=== PATIENT | male | born 1945 | race Caucasian/White ===

== ENCOUNTER 2021-04-06 14:25 | Outpatient (CLI) | payer OTHER, SELFPAY ==
--- NOTE | 2021-04-06 18:14 | ONC CON_ITS ---
Dr. Siegel New Patient Note Patient: Agapito Solorio Unit #: [id number]: [id number] Dicatated By: Danial Siegel M.D.Date of Visit: Apr 06, 2021 Onc MED New Patient/Consult Referring Physician: Dr. BRADY HERNANDEZ M.D. History of Present Illness: Mr. Agapito Solorio, is a 75-year-old gentleman with a history of recurrent fever since last year, initially he was diagnosed with Erlichinosis and treated for that and then again, as per medical record went to emergency room with high-grade fever at that time he was advised inpatient care but patient left hospital AGAINST MEDICAL ADVICE, patient returned again to the hospital where he was diagnosed with tularemia and was treated with 10 days course of doxycycline and then in February 2021 patient was evaluated by PMD at [facility] and patient told them he was not feeling any better has continued to have night sweats, intermittent fever go up to 101, he was also complaining of generalized weakness and fatigue and vague, nonspecific intermittent abdominal pain, his sed rate was 45, negative for RA screen and his hemoglobin went down to 10.1 g compared to 13 g previously, diagnosed with microcytic anemia with low iron level at 15, patient was started on oral iron and also noted his PSA was 10.2 compared to 4.4 earlier and impression was that could be due to prostatitis, patient was referred to infectious disease for FUO and he was given finasteride for BPH symptom as per patient he was given Levaquin and Flagyl which he has recently completed the course and still running off-and-on fever because of fever and abdominal pain patient underwent CT scan of abdomen pelvis on March 10, 2021 which showed large irregular mass migraine 16.6 x 11.5 x 12.5 cm in the left side of abdomen with central necrosis associated abscess cannot be ruled out. Exact origin of the mass is uncertain colon, small bowel, gastric mass as well as pancreatic mass should be considered. At least 2 small low-attenuation lesion in the liver, benign versus mets. 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 Desmin was negative. Patient denies smoking or alcohol use Patient is complaining of generalized weakness and fatigue but denies any melena or hematochezia, denies any hemoptysis or hematemesis, denies any jaundice, denies any abdominal distention but weight loss, attributing to recurrent fever and generalized weakness and fatigue as denies early fullness dysuria or hematuria. Past Medical History: Mr. Eduardo medical history consists of anxiety, B Complex deficiency, benign prostatic hyperplasia, hyperlipidemia, hypertension, microcytic anemia, osteoarthritis, and ventral hernia. Past Surgical History: Mr. Eduardo surgical/procedural history consists of colonoscopy and foot mass excision. Medications: clonazePAM (0.25 mg) Tablet Oral t.i.d. PRN, Ferrous Sulfate (325 (65 fe) mg) Tablet Oral daily, Finasteride (5 mg) Tablet Oral daily, metroNIDAZOLE (500 mg) Tablet Oral t.i.d. Allergies: No Known Allergies. Social History: Mr. Solorio is . Mr. Solorio has never smoked. He is an active drinker. Drinks beer/wine 2 x week. Family History: Mr. Solorio's mother at age 80. Mr. Solorio's father at age 80. Mr. Solorio has 2 brothers: 2 . He has 2 sisters: 2 alive. Review Of Symptoms: Review of Systems is not available for this patient. Vital Signs: Performed on Apr 06, 2021 15:56: 7, 2, 26.45, 2.11 sq.m, 72 in, 97 %, 75 /min, 18 /min, 114/74 mm(hg), 99.3 F (HIGH), and 195 lbs (HIGH). Performance Status: 0 - Fully active, able to carry on all predisease activities without restrictions. (ECOG) Physical Examination: ENMT - No mouth sores, no thrush, no jaundice no cervical lymphadenopathy, Respiratory - Lungs are clear to auscultation, Cardiovascular - Regular rate and rhythm of heart, Abdomen - Soft, bowel sounds present, Nontender no rebound tenderness, fullness in left abdomen, Extremities - No visible edema. Lab/Imaging: Most recent lab results are not available for this patient. Impression: Gastrointestinal stromal tumor, spindle cell type per CT-guided biopsy of left abdominal mass done on March 15, 2021, final pathology report neoplasm stained for c-kit, DOG1, SMA, S100. Desmin was negative CT scan of abdomen done on March 10, 2021 showed large irregular mass in the left side of abdomen Approximately 16.6 x 11.5 x 12.5 cm with air and appearance to be necrosis centrally which cannot be from the colon, splenic flexure, small bowel, pancreas or stomach. Associated abscess cannot be ruled out. Exact origin of the mass is uncertain. Mass appears to be causing pressure on the left renal artery, colon and splenic flexure, small bowel and stomach. No lymphadenopathy in the abdomen or pelvis. Small low-attenuation lesion involving the lateral right lobe of the liver and a second small low-attenuation lesion in the anterior left lobe of liver Iron deficiency anemia, on oral iron supplement Recurrent fever, in the past diagnosed and treated for erlichinosis, later on for tularemia, dysuria with ciprofloxacin earlier then Levaquin and Flagyl Plan: Discussed with patient regarding his disease status and treatment option, pathology report was reviewed which is somewhat incomplete, no mitotic index mentioned no molecular profiling e.g. c-kit mutation which is common in 70 to 80% or platelet-derived growth factor receptor alpha mutation usually reported in 10% of GIST., And on CT scan of abdomen it was not clear whether tumor is arising from stomach which is the most common site e.g. 50 to 60% cases or small bowel which is about 30 to 35% cases and there is also concerned about tumor necrosis or abscess or fistula, no obvious sign of tumor rupture. And patient also recently diagnosed with iron deficiency anemia etiology remained unclear, there was mention about EGD and colonoscopy in the medical record but has not been done yet. Patient is on oral iron supplement, tolerating reasonably well. 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 If c-kit mutation is confirmed and patient is not a candidate for upfront surgery, will consider Gleevec 400 mg p.o. daily As there is a concern regarding possible abscess or tumor necrosis or fistula and concern regarding impending tumor rupture, and no information regarding mitotic index, we will refer patient to GI surgical oncology at [place] for evaluation Signed By: Danial Siegel M.D. <<Signature on File>>
== END 2021-04-06 14:26 | disposition home or self-care (01) ==
LOC: ONCMED 14:31
PROVIDERS: PCP Emergency Medicine Emergency Medical Services; Visit Provider Internal Medicine Hematology & Oncology
DX: D48.1 Neoplasm of uncertain behavior of connective and other soft tissue (principal); K76.9 Liver disease, unspecified; D50.9 Iron deficiency anemia, unspecified; Z79.899 Other long term (current) drug therapy
CPT/HCPCS: 99204

== ENCOUNTER 2021-05-13 08:23 | Outpatient (CLI) | payer OTHER, SELFPAY ==
[2021-05-13 10:00] LABS: Basophils # 0.1 10^3/uL (0.0-0.1); Basophils % 0.4 %; Eosinophils # 0.1 10^3/uL (0.0-0.8); Eosinophils % 0.9 %; Hematocrit 35.4 % (42.0-52.0); Hemoglobin 10.8 g/dL (11.7-16.6); Lymphocytes # 3.2 10^3/uL (0.8-4.8); Lymphocytes % 20.6 %; Mean Corpuscular HGB Conc 30.5 g/dL (30.0-36.0); Mean Corpuscular Hemoglobin 23.2 pg (28.0-34.0); Mean Corpuscular Volume 76.1 fl (80-94); Mean Platelet Volume 8.5 fL (7.4-10.4); Monocytes # 1.4 10^3/uL (0.2-0.9); Monocytes % 8.7 %; Neutrophils # 10.82 10^3/uL (1.8-7.7); Nucleated Red Blood Cells % 0 %; Platelet Count 366 10^3/cmm (130-400); Red Blood Count 4.65 10^6/uL (4.1-5.3); Red Cell Distribution Width 19.7 % (12.1-15.1); White Blood Count 15.7 10^3/uL (4.0-10.0)
[2021-05-13 10:25] LABS: Alanine Aminotransferase 8 U/L (0-41); Alkaline Phosphatase 71 IU/L (40-130); Anion Gap 12.2 (5-19); Aspartate Amino Transferase 10 U/L (0-40); Blood Urea Nitrogen 7 mg/dL (8-23); Calcium 8.1 mg/dL (8.5-10.5); Carbon Dioxide 26 mmol/L (22-29); Chloride 102 mmol/L (98-107); Glucose 99 mg/dL (65-115); Osmolality Calculated 280 mOsm/kg (285-295); Potassium 4.2 mmol/L (3.5-5.1); Sodium 136 mmol/L (136-145); Total Bilirubin 0.4 mg/dL (0.15-1.2)
--- NOTE | 2021-05-15 18:12 | ONC FU_ITS ---
Dr. Siegel follow up note Patient: Agapito Solorio Unit #: [id number]: [id number] Dicatated By: Danial Siegel M.D.Date of Visit:May 13, 2021 Onc Med Follow-up/Prog Note History of Present Illness: Mr. Agapito Solorio, is a 75-year-old gentleman with a history of recurrent fever since last year, initially he was diagnosed with Erlichinosis and treated for that and then again, as per medical record went to emergency room with high-grade fever at that time he was advised inpatient care but patient left hospital AGAINST MEDICAL ADVICE, patient returned again to the hospital where he was diagnosed with tularemia and was treated with 10 days course of doxycycline and then in February 2021 patient was evaluated by PMD at [facility] and patient told them he was not feeling any better has continued to have night sweats, intermittent fever go up to 101, he was also complaining of generalized weakness and fatigue and vague, nonspecific intermittent abdominal pain, his sed rate was 45, negative for RA screen and his hemoglobin went down to 10.1 g compared to 13 g previously, diagnosed with microcytic anemia with low iron level at 15, patient was started on oral iron and also noted his PSA was 10.2 compared to 4.4 earlier and impression was that could be due to prostatitis, patient was referred to infectious disease for FUO and he was given finasteride for BPH symptom as per patient he was given Levaquin and Flagyl which he has recently completed the course and still running off-and-on fever because of fever and abdominal pain patient underwent CT scan of abdomen pelvis on March 10, 2021 which showed large irregular mass migraine 16.6 x 11.5 x 12.5 cm in the left side of abdomen with central necrosis associated abscess cannot be ruled out. Exact origin of the mass is uncertain colon, small bowel, gastric mass as well as pancreatic mass should be considered. At least 2 small low-attenuation lesion in the liver, benign versus mets. 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 Desmin was negative. Molecular profiling positive for KIT mutation , but negative for BRAF mutation and PDGFRA mutation Patient denies smoking or alcohol use Patient is complaining of generalized weakness and fatigue but denies any melena or hematochezia, denies any hemoptysis or hematemesis, denies any jaundice, denies any abdominal distention but weight loss, attributing to recurrent fever and generalized weakness and fatigue as denies early fullness dysuria or hematuria., Patient was referred to oncology clinic at [facility] where he underwent CT scan of chest abdomen pelvis on April 14, 2021 and discussed about exploratory laparotomy with resection of GIST tumor and subsequently went to see , med onc for follow-up on April 28, [address] scan of chest abdomen pelvis, Dr. Spivey's concern was metastatic disease to the liver ,so Gleevec 400 mg p.o. daily was recommended and follow-up scan in 2 months was recommended and if there is a response surgical resection in the setting of oligometastatic disease is under consideration, patient was advised to continue the Levaquin for possible deep-seated infection in the primary tumor, as per patient he took it for some time then he stopped taking it on his own and he is not spiking any more fever came For follow-up, denies any specific complaints, no fever chills, no nausea or vomiting, no diarrhea or constipation, no abdominal pain, no skin rash or mouth sores, no jaundice, patient has chronic bilateral shoulder pain due to arthritis, in the past shoulder replacement was discussed but now due to newly diagnosed GIST tumor, now being treated with only supportive care as far as extensive arthritis is concerned. Patient is tolerating Gleevec very well which he started about 2 weeks ago on April 28, 2021 Medications: clonazePAM (0.25 mg) Tablet Oral t.i.d. PRN, Ferrous Sulfate (325 (65 fe) mg) Tablet Oral daily, Finasteride (5 mg) Tablet Oral daily Allergies: No Known Allergies. Review of Systems: Review of Systems is not available for this patient. Vital Signs: Performed on May 13, 2021 08:43 Height - 72.00 in Weight - 193.8 lbs (LOW) BSA - 2.10 sq.m BMI - 26.28 Temperature - 98.2 F (LOW) Pulse - 84 /min Respiration - 18 /min BP - 117/76 mm(hg) O2 Sat - 96 % Pain - 6 Fatigue - 7 Performance Status: 0 - Fully active, able to carry on all predisease activities without restrictions. (ECOG) Physical Examination: ENMT - No mouth sores, no thrush, no jaundice, Respiratory - Lungs are clear to auscultation, Cardiovascular - Regular rate and rhythm of heart, Abdomen - Soft, bowel sounds present, Extremities - No visible edema. Lab/Imaging: Most recent lab results are not available for this patient. Impression: Gastrointestinal stromal tumor, spindle cell type per CT-guided biopsy of left abdominal mass done on March 15, 2021, final pathology report neoplasm stained for c-kit, DOG1, SMA, S100. Desmin was negative CT scan of abdomen done on March 10, 2021 showed large irregular mass in the left side of abdomen Approximately 16.6 x 11.5 x 12.5 cm with air and appearance to be necrosis centrally which cannot be from the colon, splenic flexure, small bowel, pancreas or stomach. Associated abscess cannot be ruled out. Exact origin of the mass is uncertain. Mass appears to be causing pressure on the left renal artery, colon and splenic flexure, small bowel and stomach. No lymphadenopathy in the abdomen or pelvis. 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 Spivey as well as , medical oncologist on April 28, 2021, at that time as per patient he was given prescription for Gleevec and plan was to try Gleevec for [address] scan to assess the response, and to assess for surgical resection Plan: Discussed with patient regarding Labs, white blood count 15.7 hemoglobin 10.8 hematocrit 35.4 platelets 366,000 MCV 76.1 and CMP within normal limits Clinically, patient doing well, tolerating Gleevec well but he discontinued his Levaquin as he is not spiking any more fever, at this point we will continue with Gleevec as prescribed by , at [facility] in mid April 2021 and plan to continue for 2 months then followed by CT scan of chest abdomen pelvis at [facility] and then evaluate for possible resection., , His follow-up CBC shows mild anemia, microcytic with MCV 76.1, we will repeat CBC CMP in a month and if there is no improvement will consider anemia work-up which include iron studies B12 folic acid and reticulocyte count Return to clinic in 1 month with CBC CMP Signed By: Danial Siegel M.D. <<Signature on File>>
== END 2021-05-13 08:24 | disposition home or self-care (01) ==
LOC: ONCMED 08:25
PROVIDERS: PCP Emergency Medicine Emergency Medical Services; Visit Provider Internal Medicine Hematology & Oncology
DX: D48.1 Neoplasm of uncertain behavior of connective and other soft tissue (principal); C78.7 Secondary malignant neoplasm of liver and intrahepatic bile duct; D50.9 Iron deficiency anemia, unspecified; Z79.899 Other long term (current) drug therapy
CPT/HCPCS: 36415; 80053; 85025; 99214

== ENCOUNTER 2021-06-13 14:23 | Outpatient (CLI) | payer OTHER, SELFPAY ==
[2021-06-13 16:05] LABS: Basophils # 0.1 10^3/uL (0.0-0.1); Basophils % 0.4 %; Eosinophils # 0.4 10^3/uL (0.0-0.8); Eosinophils % 2.2 %; Hematocrit 33.8 % (42.0-52.0); Hemoglobin 10.3 g/dL (11.7-16.6); Lymphocytes # 3.5 10^3/uL (0.8-4.8); Lymphocytes % 21.1 %; Mean Corpuscular HGB Conc 30.5 g/dL (30.0-36.0); Mean Corpuscular Hemoglobin 23.4 pg (28.0-34.0); Mean Corpuscular Volume 76.6 fl (80-94); Mean Platelet Volume 9.4 fL (7.4-10.4); Monocytes # 1.8 10^3/uL (0.2-0.9); Monocytes % 10.7 %; Neutrophils # 10.73 10^3/uL (1.8-7.7); Neutrophils % 65.1 %; Nucleated Red Blood Cells % 0 %; Platelet Count 463 10^3/cmm (130-400); Red Blood Count 4.41 10^6/uL (4.1-5.3); Red Cell Distribution Width 19.1 % (12.1-15.1); White Blood Count 16.5 10^3/uL (4.0-10.0)
[2021-06-13 16:38] LABS: Alanine Aminotransferase 9 U/L (0-41); Alkaline Phosphatase 83 IU/L (40-130); Anion Gap 13.1 (5-19); Aspartate Amino Transferase 9 U/L (0-40); Blood Urea Nitrogen 8 mg/dL (8-23); Calcium 8.5 mg/dL (8.5-10.5); Carbon Dioxide 27 mmol/L (22-29); Chloride 98 mmol/L (98-107); Globulin 3.2 g/dL (1.3-4.6); Glucose 98 mg/dL (65-115); Osmolality Calculated 276 mOsm/kg (285-295); Potassium 4.1 mmol/L (3.5-5.1); Sodium 134 mmol/L (136-145); Total Bilirubin 0.3 mg/dL (0.15-1.2); Total Protein 6.2 g/dL (6.6-8.7)
--- NOTE | 2021-06-13 16:54 | ONC FU_ITS ---
Dr. Siegel follow up note Patient: Agapito Solorio Unit #: [id number]: 1945 Dicatated By: Danial Siegel M.D.Date of Visit:Jun 13, 2021 Onc Med Follow-up/Prog Note History of Present Illness: Mr. Agapito Solorio, is a 75-year-old gentleman with a history of recurrent fever since last year, initially he was diagnosed with Erlichinosis and treated for that and then again, as per medical record went to emergency room with high-grade fever at that time he was advised inpatient care but patient left hospital AGAINST MEDICAL ADVICE, patient returned again to the hospital where he was diagnosed with tularemia and was treated with 10 days course of doxycycline and then in February 2021 patient was evaluated by PMD at [facility] and patient told them he was not feeling any better has continued to have night sweats, intermittent fever go up to 101, he was also complaining of generalized weakness and fatigue and vague, nonspecific intermittent abdominal pain, his sed rate was 45, negative for RA screen and his hemoglobin went down to 10.1 g compared to 13 g previously, diagnosed with microcytic anemia with low iron level at 15, patient was started on oral iron and also noted his PSA was 10.2 compared to 4.4 earlier and impression was that could be due to prostatitis, patient was referred to infectious disease for FUO and he was given finasteride for BPH symptom as per patient he was given Levaquin and Flagyl which he has recently completed the course and still running off-and-on fever because of fever and abdominal pain patient underwent CT scan of abdomen pelvis on March 10, 2021 which showed large irregular mass migraine 16.6 x 11.5 x 12.5 cm in the left side of abdomen with central necrosis associated abscess cannot be ruled out. Exact origin of the mass is uncertain colon, small bowel, gastric mass as well as pancreatic mass should be considered. At least 2 small low-attenuation lesion in the liver, benign versus mets. 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 Desmin was negative. Molecular profiling positive for KIT mutation , but negative for BRAF mutation and PDGFRA mutation Patient denies smoking or alcohol use Patient is complaining of generalized weakness and fatigue but denies any melena or hematochezia, denies any hemoptysis or hematemesis, denies any jaundice, denies any abdominal distention but weight loss, attributing to recurrent fever and generalized weakness and fatigue as denies early fullness dysuria or hematuria., Patient was referred to oncology clinic at [facility] where he underwent CT scan of chest abdomen pelvis on April 14, 2021 and discussed about exploratory laparotomy with resection of GIST tumor and subsequently went to see , med onc for follow-up on April 28, [address] scan of chest abdomen pelvis, Dr. Spivey's concern was metastatic disease to the liver ,so Gleevec 400 mg p.o. daily was recommended and follow-up scan in 2 months was recommended and if there is a response surgical resection in the setting of oligometastatic disease is under consideration, patient was advised to continue the Levaquin for possible deep-seated infection in the primary tumor, as per patient he took it for some time then he stopped taking it on his own and he is not spiking any more fever Came for follow-up, denies any specific complaint except generalized weakness and fatigue, patient also has history of muscle spasm, which responded well to muscle relaxant., No fever chills, no nausea or vomiting, no diarrhea or constipation, no melena or hematochezia,, Off and on low-grade fever but now improving, tolerating oral iron well and Gleevec. Medications: clonazePAM (0.25 mg) Tablet Oral t.i.d. PRN, Ferrous Sulfate (325 (65 fe) mg) Tablet Oral daily, Finasteride (5 mg) Tablet Oral daily Allergies: No Known Allergies. Review of Systems: Review of Systems is not available for this patient. Vital Signs: Vitals are not available for this patient. Performance Status: 0 - Fully active, able to carry on all predisease activities without restrictions. (ECOG) Physical Examination: ENMT - No mouth sores, no thrush, no jaundice, no cervical lymphadenopathy, Respiratory - Lungs are clear to auscultation, Cardiovascular - Regular rate and rhythm of heart, Abdomen - Soft, bowel sounds present no rebound tenderness, Extremities - No visible edema. Lab/Imaging: Most recent lab results are not available for this patient. Impression: Gastrointestinal stromal tumor, spindle cell type per CT-guided biopsy of left abdominal mass done on March 15, 2021, final pathology report neoplasm stained for c-kit, DOG1, SMA, S100. Desmin was negative CT scan of abdomen done on March 10, 2021 showed large irregular mass in the left side of abdomen Approximately 16.6 x 11.5 x 12.5 cm with air and appearance to be necrosis centrally which cannot be from the colon, splenic flexure, small bowel, pancreas or stomach. Associated abscess cannot be ruled out. Exact origin of the mass is uncertain. Mass appears to be causing pressure on the left renal artery, colon and splenic flexure, small bowel and stomach. No lymphadenopathy in the abdomen or pelvis. 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 Spivey as well as , medical oncologist on April 28, 2021, at that time as per patient he was given prescription for Gleevec and plan was to try Gleevec for [address] scan to assess the response, and to assess for surgical resection Plan: Discussed with patient regarding his labs white blood count 16.5 hemoglobin 10.3 g compared to 10.8 g previously hematocrit 33.8 platelets 463,000 CMP within normal limit except sodium 134 Clinically, patient is doing reasonably well, now with progressive anemia due to iron deficiency while on oral iron supplement which could be due to either malabsorption or chronic blood loss, at this point will discontinue oral iron and consider Injectafer 750 mg IV weekly x2 all the side effect possible benefits associated with Injectafer including but not limited to headaches, allergic reaction were mentioned. We will obtain approval from his insurance prior to treatment. As far as GIST is concerned patient is on Gleevec 400 mg p.o. daily since April 28, 2021, tolerating well, we will consider follow-up abdominal sonogram to assess the disease response if it shows positive will consider CT scan of abdomen pelvis. Patient return to clinic after abdominal sonogram for further discussion in the meantime continue with Gleevec 400 mg p.o. daily. Signed By: Danial Siegel M.D. <<Signature on File>>
== END 2021-06-13 14:24 | disposition home or self-care (01) ==
LOC: ONCMED 14:25
PROVIDERS: PCP Emergency Medicine Emergency Medical Services; Visit Provider Internal Medicine Hematology & Oncology
DX: C49.A0 Gastrointestinal stromal tumor, unspecified site (principal); D50.9 Iron deficiency anemia, unspecified; C78.7 Secondary malignant neoplasm of liver and intrahepatic bile duct; Z79.899 Other long term (current) drug therapy
CPT/HCPCS: 36415; 80053; 85025; 99214

== ENCOUNTER 2021-06-22 10:36 | Outpatient (CLI) | payer OTHER, SELFPAY ==
--- NOTE | 2021-06-22 10:45 | US_ITS ---
WS: [id number] Limited abdomen ultrasound. HISTORY: Evaluate mass in the LEFT upper quadrant. Known GIST. COMPARISON: CT 03/10/2021. Lobulated soft tissue mass centered in the LEFT upper quadrant as seen on the prior ultrasound is smith luated by ultrasound. This mass is inseparable from the pancreatic tail and extends medial to the LEF T kidney. There is increased vascularity within the solid mass. There are also a few cystic component s present. Mass is very difficult to measure and image completely due to its large size. Mass measure s at least 14.0 x 9.2 x 10.8 cm. No adjacent ascites. US/US abdomen limited 14403 IMPRESSION: 1. Soft tissue mass centered in the LEFT upper abdomen by history is a known GI ST. 2. By ultrasound this mass measures 14.0 x 9.2 x 10.8 cm. For more accurate smith luation and to clarify disease progression or regression, CT of the abdomen an d pelvis with IV and oral contrast is recommended. As compared to the CT no obv ious change but it is very difficult to compare the ultrasound with the CT.
[2021-06-22] MEDS: ferric carboxy (IVPB) 750 MG in sodium chloride 0.9% (100 ml) 100 ML 460 MG IV (13:40)
== END 2021-06-22 10:37 | disposition home or self-care (01) ==
LOC: US 10:38 → ONCMED 12:43
PROVIDERS: PCP Emergency Medicine Emergency Medical Services; Visit Provider Internal Medicine Hematology & Oncology
DX: C49.A0 Gastrointestinal stromal tumor, unspecified site (principal)
CPT/HCPCS: 76705; 96365; J1439

== ENCOUNTER 2021-06-29 06:45 | Outpatient (CLI) | payer OTHER, SELFPAY ==
[2021-06-29] MEDS: ferric carboxy (IVPB) 750 MG in sodium chloride 0.9% (100 ml) 100 ML 460 MG IV (13:40)
== END 2021-06-29 06:46 | disposition home or self-care (01) ==
LOC: ONCMED 06:45
PROVIDERS: PCP Emergency Medicine Emergency Medical Services; Visit Provider Internal Medicine Hematology & Oncology
DX: C49.A0 Gastrointestinal stromal tumor, unspecified site (principal); D50.9 Iron deficiency anemia, unspecified
CPT/HCPCS: 96365; J1439

== ENCOUNTER 2021-08-04 10:01 | Outpatient (CLI) | payer OTHER, SELFPAY ==
[2021-08-04 11:33] LABS: Ferritin 566 ng/mL (30-400); Iron 28 ug/dL (59-158); Percent Saturation 13.7 % (20-50); Total Iron Binding Capacity 203 mcg/dl; Unsaturated Iron Binding 175 ug/dL (112-347)
[2021-08-04 11:37] LABS: Basophils # 0.1 10^3/uL (0.0-0.1); Basophils % 0.5 %; Eosinophils # 0.3 10^3/uL (0.0-0.8); Eosinophils % 1.9 %; Hematocrit 39.8 % (42.0-52.0); Hemoglobin 12.9 g/dL (11.7-16.6); Lymphocytes # 2.2 10^3/uL (0.8-4.8); Lymphocytes % 14.4 %; Mean Corpuscular HGB Conc 32.4 g/dL (30.0-36.0); Mean Corpuscular Volume 86.5 fl (80-94); Mean Platelet Volume 9.3 fL (7.4-10.4); Monocytes # 1.4 10^3/uL (0.2-0.9); Neutrophils # 11.04 10^3/uL (1.8-7.7); Neutrophils % 73.7 %; Nucleated Red Blood Cells % 0 %; Platelet Count 329 10^3/cmm (130-400); Red Cell Distribution Width 22.4 % (12.1-15.1)
--- NOTE | 2021-08-07 19:32 | ONC FU_ITS ---
Dr. Siegel follow up note Patient: Agapito Solorio Unit #: [id number]: 1945 Dicatated By: Danial Siegel M.D.Date of Visit:Aug 04, 2021 Onc Med Follow-up/Prog Note History of Present Illness: Mr. Agapito Solorio, is a 75-year-old gentleman with a history of recurrent fever since last year, initially he was diagnosed with Erlichinosis and treated for that and then again, as per medical record went to emergency room with high-grade fever at that time he was advised inpatient care but patient left hospital AGAINST MEDICAL ADVICE, patient returned again to the hospital where he was diagnosed with tularemia and was treated with 10 days course of doxycycline and then in February 2021 patient was evaluated by PMD at [facility] and patient told them he was not feeling any better has continued to have night sweats, intermittent fever go up to 101, he was also complaining of generalized weakness and fatigue and vague, nonspecific intermittent abdominal pain, his sed rate was 45, negative for RA screen and his hemoglobin went down to 10.1 g compared to 13 g previously, diagnosed with microcytic anemia with low iron level at 15, patient was started on oral iron and also noted his PSA was 10.2 compared to 4.4 earlier and impression was that could be due to prostatitis, patient was referred to infectious disease for FUO and he was given finasteride for BPH symptom as per patient he was given Levaquin and Flagyl which he has recently completed the course and still running off-and-on fever because of fever and abdominal pain patient underwent CT scan of abdomen pelvis on March 10, 2021 which showed large irregular mass migraine 16.6 x 11.5 x 12.5 cm in the left side of abdomen with central necrosis associated abscess cannot be ruled out. Exact origin of the mass is uncertain colon, small bowel, gastric mass as well as pancreatic mass should be considered. At least 2 small low-attenuation lesion in the liver, benign versus mets. 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 Desmin was negative. Molecular profiling positive for KIT mutation , but negative for BRAF mutation and PDGFRA mutation Patient denies smoking or alcohol use Patient is complaining of generalized weakness and fatigue but denies any melena or hematochezia, denies any hemoptysis or hematemesis, denies any jaundice, denies any abdominal distention but weight loss, attributing to recurrent fever and generalized weakness and fatigue as denies early fullness dysuria or hematuria., Patient was referred to oncology clinic at [facility] where he underwent CT scan of chest abdomen pelvis on April 14, 2021 and discussed about exploratory laparotomy with resection of GIST tumor and subsequently went to see , med onc for follow-up on April 28, [address] scan of chest abdomen pelvis, Dr. Spivey's concern was metastatic disease to the liver ,so Gleevec 400 mg p.o. daily was recommended and follow-up scan in 2 months was recommended and if there is a response surgical resection in the setting of oligometastatic disease is under consideration, patient was advised to continue the Levaquin for possible deep-seated infection in the primary tumor, as per patient he took it for some time then he stopped taking it on his own and he is not spiking any more fever , tolerating oral Gleevec. Came for follow-up, complaining of neck pain and lower back pain radiating to lower extremities. Denies any trauma to his back or neck, denies any urine or stool incontinence, denies any fever chills, patient stopped taking antibiotics about weeks ago, as he was on antibiotic for possible infected necrotic GIST. Tolerated parenteral iron well, now tolerating Gleevec well Medications: clonazePAM (0.25 mg) Tablet Oral t.i.d. PRN, Ferrous Sulfate (325 (65 fe) mg) Tablet Oral daily, Finasteride (5 mg) Tablet Oral daily Allergies: No Known Allergies. Review of Systems: Review of Systems is not available for this patient. Vital Signs: Performed on Aug 04, 2021 11:54 Height - 72.00 in Weight - 196.8 lbs (LOW) BSA - 2.12 sq.m BMI - 26.69 Temperature - 98.8 F Pulse - 70 /min Respiration - 18 /min BP - 108/71 mm(hg) O2 Sat - 99 % Pain - 4 Fatigue - 8 Performance Status: 1 - No physically strenuous activity, but ambulatory and able to carry out light or sedentary work (e.g. office work, light house work). (ECOG) Physical Examination: ENMT - No mouth sores, no thrush, no jaundice, No focal tenderness, no cervical lymphadenopathy, Respiratory - Lungs are clear to auscultation, Cardiovascular - Regular rate and rhythm of heart, Abdomen - Soft, bowel sounds present, Extremities - No lower extremity edema or focal weakness, no focal weakness in lower back area or overlying skin changes. Lab/Imaging: Most recent lab results are not available for this patient. Impression: Gastrointestinal stromal tumor, spindle cell type per CT-guided biopsy of left abdominal mass done on March 15, 2021, final pathology report neoplasm stained for c-kit, DOG1, SMA, S100. Desmin was negative CT scan of abdomen done on March 10, 2021 showed large irregular mass in the left side of abdomen Approximately 16.6 x 11.5 x 12.5 cm with air and appearance to be necrosis centrally which cannot be from the colon, splenic flexure, small bowel, pancreas or stomach. Associated abscess cannot be ruled out. Exact origin of the mass is uncertain. Mass appears to be causing pressure on the left renal artery, colon and splenic flexure, small bowel and stomach. No lymphadenopathy in the abdomen or pelvis. Small low-attenuation lesion involving the lateral right lobe of the liver and a second small low-attenuation lesion in the anterior left lobe of liverO Iron deficiency anemia, on oral iron supplement Recurrent fever, in the past diagnosed and treated for erlichinosis, later on for tularemia, dysuria with ciprofloxacin earlier then Levaquin and Flagyl A repeat CT scan of chest abdomen pelvis done on April 14, 2021 in [place] shows oligometastatic disease to the liver, patient was seen by surgical oncology Dr. Spivey as well as , medical oncologist on April 28, 2021, at that time as per patient he was given prescription for Gleevec and plan was to try Gleevec for [address] scan to assess the response, and to assess for surgical resection Plan: Discussed with patient regarding his labs white blood count fifteen hemoglobin 12.9 g compared to 10.3 prior to Injectafer infusion hematocrit 39.8 platelets 329,000, iron studies shows iron saturation 30.7% ferritin 566 iron twenty-eight TIBC 203 Clinically, patient in mild to moderate distress due to lower back pain as well as neck pain, etiology unclear could be metastatic disease but less likely other possibility could be musculoskeletal or disc prolapse, at this point, we will consider MRI scan of C-spine and lumbosacral area. And also 2 weeks after MRI scan of spine we will consider CT scan of abdomen pelvis to assess disease response to Gleevec. Patient return to clinic after MRI scan of C-spine for further discussion. Patient was advised to call us or go to hospital in case there is a worsening of his lower back pain or urine or stool incontinence, in the meantime he will continue with Gleevec 4 mg p.o. daily Signed By: Danial Sieegl M.D. <<Signature on File>>
== END 2021-08-04 10:02 | disposition home or self-care (01) ==
LOC: ONCMED 10:02
PROVIDERS: PCP Emergency Medicine Emergency Medical Services; Visit Provider Internal Medicine Hematology & Oncology
DX: C49.A4 Gastrointestinal stromal tumor of large intestine (principal); D50.9 Iron deficiency anemia, unspecified; A21 Tularemia; R30.0 Dysuria; Z79.899 Other long term (current) drug therapy; Z79.2 Long term (current) use of antibiotics
CPT/HCPCS: 36415; 82728; 83540; 83550; 85025; 99214

== ENCOUNTER 2021-08-19 13:21 | Outpatient (CLI) | payer OTHER, SELFPAY ==
--- NOTE | 2021-08-19 13:54 | MR_ITS ---
WS: [id number] MRI CERVICAL SPINE NONCONTRAST AND CONTRAST TECHNIQUE: Sagittal T1, T2 and STIR imaging. Axial T2, gradient, and fiesta imaging. Post gadolinium imaging was obtained. CLINICAL INFORMATION: GASTROINTESTINAL STROMAL TUMOR COMPARISON: None. FINDINGS: Straightening of the normal cervical lordosis. Cord signal is normal. Tiny enhancing lesion in the le ft C2 lateral mass may represent small atypical hemangioma measuring 7 mm. Tiny enhancing metastatic lesion is difficult to exclude although no other enhancing lesions. C2-C3: Mild facet arthropathy. Mild bilateral bony foraminal narrowing. Spinal canal is patent. C3-C4: Moderate left and mild right bony foraminal narrowing. Moderate facet arthropathy. C4-C5: Disc osteophyte complex with endplate ridging. Moderate left and mild right bony foraminal kenya rowing. Moderate right facet arthropathy. C5-C6: Disc osteophyte complex with endplate ridging. Moderate to severe left and mild right bony for aminal narrowing. Moderate facet arthropathy. C6-C7: Disc osteophyte complex with endplate ridging. Mild to moderate bilateral bony foraminal narro wing. C7-T1: Endplate osteophytic ridging. Moderate left and mild right bony foraminal narrowing. Spinal ca nal is patent.. Visualized brain stem structures: Normal. Prevertebral soft tissues: Normal. MR/MR cervical spine wo/w [id number] IMPRESSION: 1. Tiny enhancing lesion in the left C2 lateral mass may represent small atypi gaston hemangioma measuring 7 mm. Tiny enhancing metastatic lesion is difficult to entirely exclude although no other enhancing lesions. Bone scan versus 3 month follow-up MRI could be used in further evaluation. 2. No significant central canal stenosis. Cord signal is normal. 3. Moderate spondylitic changes with multilevel bony foraminal narrowing. 4. Bony foraminal narrowing worse at left C3-4, left C4-5, left C5-6 and left C6-7. 5. Multilevel facet arthropathy described above.
--- NOTE | 2021-08-19 13:55 | MR_ITS ---
WS: [id number] MRI LUMBAR SPINE WITHOUT AND WITH CONTRAST. TECHNIQUE: Sagittal T1, T2 and STIR imaging. Axial T1 and T2 imaging. Post gadolinium imaging was obt ained. CLINICAL INFORMATION: GASTROINTESTINAL STROMAL TUMOR COMPARISON: None. FINDINGS: Mild lumbar curve. No acute compression. No high-grade central canal stenosis. Enhancing trabeculated lesion in the T12 vertebral body is nonspecific but most likely represents atypical hemangioma. Steven tional evidence of more typical smaller hemangiomas. Otherwise no evidence of bony metastatic disease . 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 L1-L2: Normal. L2-L3: Minimal annular bulging. Slight narrowing of the right subarticular recess. Moderate facet art hropathy. Mild right and no left foraminal narrowing. L3-L4: Minimal annular bulging. Moderate facet arthropathy. Spinal canal and foramen are patent. L4-L5: Mild disc bulging in combination with facet arthropathy and ligamentum flavum hypertrophy resu lts in moderate central canal stenosis. Impingement traversing L5 nerve roots bilaterally. Mild left and no significant right foraminal narrowing. L5-S1: Mild disc bulging with slight impingement on the right subarticular recess and traversing righ t S1 nerve root. Moderate facet arthropathy with small facet effusions. Foramen are patent. Small bilateral renal cysts partially visualized. MR/MR lumbar spine wo/w con [id number] IMPRESSION: 1. Moderate central canal stenosis L4-5 due to disc bulging with facet arthrop athy and ligamentum flavum hypertrophy. Impingement traversing left greater dale n right L5 nerve roots bilaterally. 2. Mild to moderate left L4-5 foraminal narrowing. 3. Disc bulge L5-S1 slightly impinges the traversing right S1 nerve root. Mode rate facet arthropathy at this level with small facet effusions. 4. Slight narrowing of the right L2-3 subarticular recess with encroachment on traversing right L3 nerve root and exiting right L2 nerve root. 5. Enhancing lesion in the T12 vertebral body measuring approximately 11 mm no nspecific but felt to most likely represent atypical hemangioma. Additional sim ilar-appearing suspected hemangioma in the T9 vertebral body on the school bus mechanic imagi ng. This can be followed up with MRI in 3 months versus bone scan if clinical s uspicion for bony metastatic involvement.
== END 2021-08-19 13:22 | disposition home or self-care (01) ==
PROVIDERS: PCP Emergency Medicine Emergency Medical Services; Visit Provider Internal Medicine Hematology & Oncology
DX: C49.A0 Gastrointestinal stromal tumor, unspecified site (principal); M48.061 Spinal stenosis, lumbar region without neurogenic claudication; M51.27 Other intervertebral disc displacement, lumbosacral region; M47.816 Spondylosis without myelopathy or radiculopathy, lumbar region
CPT/HCPCS: 72156; 72158; A9579

== ENCOUNTER 2021-09-05 13:02 | Outpatient (CLI) | payer OTHER, SELFPAY ==
--- NOTE | 2021-09-05 | CT_ITS ---
WS: [id number] Exam: CT chest abd pel w con* Date/Time of Exam: 09/05/2021 1:32 PM Reason For Exam: GASTROINTESTINAL STROMAL TUMOR DLP: All CT scans at [facility] use at least one of these dose optimization techniques: automated e xposure control; mA and/or kV adjustment per patient size (includes targeted exams where dose is matc hed to clinical indication); or iterative reconstruction. CT scan of the chest abdomen pelvis is performed in axial plane with sagittal coronal reformatted marcos ges. Compared to prior outside abdominal CT scan without contrast performed 03/10/2021. CT scan of the chest with IV contrast. The lungs are fully expanded and clear. No pleural or pericardial effusion. The airway is patent. No significant mediastinal or hilar lymphadenopathy. The thoracic aorta is normal in caliber. The centra l pulmonary arteries are clear. Bony structures are unremarkable. No significant chest wall defects. CT/CT chest abd pel w con* IMPRESSION: 1. No suspicious pulmonary mass or nodule. 2. No significant lymphadenopathy in the chest. Negative. CT scan of the abdomen and pelvis with IV contrast. A 2.2 cm ring-enhancing nodule is seen in the anterior lateral right hepatic lo be most likely a metastatic lesion. There are 2 other low attenuation nodules i n the right hepatic lobe that measure up to 1.7 cm at greatest diameter and 0.6 7 cm. These may also represent metastatic lesions. A 0.56 cm low-attenuation no dule is seen in the anterior left hepatic lobe and may also represent a metasta tic lesion. There are several tiny gallstones noted. No sign of acute cholecyst itis. The spleen is unremarkable. There is a 12.3 x 12.9 cm lobulated mass whic h appears to involve small bowel loops in the left upper quadrant of the abdome n most likely jejunal loops. The mass is smaller than noted previously. There a re areas of nodular enhancement as well as low attenuation areas in the mass wh ich may represent necrosis. There is associated stranding and haziness within t he adjacent mesenteric fat likely representing carcinomatosis. There are scatte red mesenteric lymph nodes however none appear to exceed 1 cm greatest short ax is dimension. The abdominal aorta is normal in caliber. The pancreas appears gr ossly normal but does abut the left abdominal mass. The portal vein and IVC are patent. The remaining visualized small bowel loops are normal in caliber. No s ign of acute appendicitis. The colon is otherwise unremarkable. Normal adrenal glands. There are 2 cysts in the right kidney. The largest measures 2.8 cm at g reatest diameter. The smaller cyst 1.3 cm. Unremarkable left kidney. No mass or lymphadenopathy in the pelvis. The ureters are patent into the bladder. The ur inary bladder is unremarkable. Prostatomegaly noted with an homogeneous attenua tion the prostate gland which is nonspecific. Fat filled bilateral inguinal her nias noted. The largest hernias on the right. No destructive bone lesions. Tiny periumbilical fat filled hernia. IMPRESSION: 1. 12.3 x 12.9 cm lobulated mass which appears to encase and involve small ammy l loops in the left upper quadrant most likely jejunal loops. The mass is small er than noted on the previous exam. 2. Low-attenuation lesions in the liver suspicious for hepatic metastases. 3 no dules in the right lobe and one nodule in the left lobe. 3. Stranding and haziness identified within the mesenteric fat which may repres ent carcinomatosis. Scattered mesenteric lymph nodes identified however none ex ceed 1 cm greatest short axis dimension. 4. Mild prostatomegaly. Inhomogeneous attenuation of the prostate gland which i s a nonspecific finding. Correlation with physical and laboratory findings woul d be suggested.
[2021-09-05] MEDS: iohexol 300 mg/mL 100 mL Btl IV (16:33)
[2021-09-05] MEDS: iohexol 300 mg/mL 50 mL Btl PO (16:34)
== END 2021-09-05 13:03 | disposition home or self-care (01) ==
PROVIDERS: PCP Emergency Medicine Emergency Medical Services; Visit Provider Internal Medicine Hematology & Oncology
DX: C49.A0 Gastrointestinal stromal tumor, unspecified site (principal); N40.0 Benign prostatic hyperplasia without lower urinary tract symptoms; K76.89 Other specified diseases of liver
CPT/HCPCS: 71260; 74177; Q9967

== ENCOUNTER 2021-09-15 08:59 | Outpatient (CLI) | payer OTHER, SELFPAY ==
--- NOTE | 2021-09-15 15:00 | ONC FU_ITS ---
Dr. Siegel follow up note Patient: Agapito Solorio Unit #: [id number]: 1945 Dicatated By: Danial Siegel M.D.Date of Visit:Sep 15, 2021 Onc Med Follow-up/Prog Note History of Present Illness: Mr. Agapito Solorio, is a 75-year-old gentleman with a history of recurrent fever since last year, initially he was diagnosed with Erlichinosis and treated for that and then again, as per medical record went to emergency room with high-grade fever at that time he was advised inpatient care but patient left hospital AGAINST MEDICAL ADVICE, patient returned again to the hospital where he was diagnosed with tularemia and was treated with 10 days course of doxycycline and then in February 2021 patient was evaluated by PMD at [facility] and patient told them he was not feeling any better has continued to have night sweats, intermittent fever go up to 101, he was also complaining of generalized weakness and fatigue and vague, nonspecific intermittent abdominal pain, his sed rate was 45, negative for RA screen and his hemoglobin went down to 10.1 g compared to 13 g previously, diagnosed with microcytic anemia with low iron level at 15, patient was started on oral iron and also noted his PSA was 10.2 compared to 4.4 earlier and impression was that could be due to prostatitis, patient was referred to infectious disease for FUO and he was given finasteride for BPH symptom as per patient he was given Levaquin and Flagyl which he has recently completed the course and still running off-and-on fever because of fever and abdominal pain patient underwent CT scan of abdomen pelvis on March 10, 2021 which showed large irregular mass migraine 16.6 x 11.5 x 12.5 cm in the left side of abdomen with central necrosis associated abscess cannot be ruled out. Exact origin of the mass is uncertain colon, small bowel, gastric mass as well as pancreatic mass should be considered. At least 2 small low-attenuation lesion in the liver, benign versus mets. 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 Desmin was negative. Molecular profiling positive for KIT mutation , but negative for BRAF mutation and PDGFRA mutation Patient denies smoking or alcohol use Patient is complaining of generalized weakness and fatigue but denies any melena or hematochezia, denies any hemoptysis or hematemesis, denies any jaundice, denies any abdominal distention but weight loss, attributing to recurrent fever and generalized weakness and fatigue as denies early fullness dysuria or hematuria., Patient was referred to oncology clinic at [facility] where he underwent CT scan of chest abdomen pelvis on April 14, 2021 and discussed about exploratory laparotomy with resection of GIST tumor and subsequently went to see , med onc for follow-up on April 28, [address] scan of chest abdomen pelvis, Dr. Spivey's concern was metastatic disease to the liver ,so Gleevec 400 mg p.o. daily was recommended and follow-up scan in 2 months was recommended and if there is a response surgical resection in the setting of oligometastatic disease is under consideration, patient was advised to continue the Levaquin for possible deep-seated infection in the primary tumor, as per patient he took it for some time then he stopped taking it on his own and he is not spiking any more fever , tolerating oral Gleevec 400 mg p.o. daily Follow-up CT scan of chest abdomen pelvis done on September 05, 2021 shows there is 12.3 x 12.9 cm lobulated mass which appears to encase and involve small bowel loop in the left upper quadrant, mass is smaller than previously noted on March 10, 2021 at that time it was 16.6 x 12.5 x 11.5 cm and also shows 2.2 cm ring-enhancing nodule in the anterior lateral right hepatic lobe, there are 2 low-attenuation nodule in the right hepatic lobe which measures 1.7 cm and 0.67 cm. And 0.56 cm low-attenuation nodule in the anterior left hepatic lobe, all may represent metastatic disease. MRI scan of the spine was done on August 19, 2021 showed tiny enhancing lesion in left C2 lateral, may represent small atypical hemangioma measuring 7 mm. No significant central canal stenosis. Bony foraminal narrowing worse at left C3-7. MRI scan of lumbar spine showed enhancing lesion in T12 measuring 11 mm most likely atypical hemangioma. Similar hemangioma and T9, disc bulge L5-S1 slightly impinges the traversing right S1 nerve root. Mild to moderate left L4-5 foraminal narrowing. Moderate central canal stenosis at L4-5 due to disc bulging. With impingement traversing left greater than right L5 nerve root bilaterally. Came for follow-up, complaining of generalized weakness and fatigue, chronic lower back pain and off and on bilateral shoulder discomfort more on the left. Lower back is 3-4 on the scale of 1-10. No urine or stool incontinence,. No abdominal pain, no jaundice, no fever but night sweats, chills. Earlier patient was treated with antibiotics for possible infected GIST. But no more fever now. As per patient in the past because of off and on chills and night sweats, his testosterone level was checked by his PMD about a year ago, it was on the lower side of normal.Tolerating Gleevec 400 mg p.o. daily well otherwise Medications: clonazePAM (0.25 mg) Tablet Oral t.i.d. PRN, Ferrous Sulfate (325 (65 fe) mg) Tablet Oral daily, Finasteride (5 mg) Tablet Oral daily Allergies: No Known Allergies. Review of Systems: Review of Systems is not available for this patient. Vital Signs: Performed on Sep 15, 2021 09:25 Height - 72.00 in Weight - 204 lbs (HIGH) BSA - 2.15 sq.m BMI - 27.67 Temperature - 97.7 F (LOW) Pulse - 82 /min Respiration - 18 /min BP - 100/68 mm(hg) O2 Sat - 97 % Pain - 4 Fatigue - 8 Performance Status: 0 - Fully active, able to carry on all predisease activities without restrictions. (ECOG) Physical Examination: ENMT - No mouth sores, no thrush, no jaundice, Respiratory - Lungs are clear to auscultation , Cardiovascular - Regular rate and rhythm of heart, Abdomen - Soft, bowel sounds present, Extremities - No visible edema. Lab/Imaging: Most recent lab results are not available for this patient. Impression: Gastrointestinal stromal tumor, spindle cell type per CT-guided biopsy of left abdominal mass done on March 15, 2021, final pathology report neoplasm stained for c-kit, DOG1, SMA, S100. Desmin was negative CT scan of abdomen done on March 10, 2021 showed large irregular mass in the left side of abdomen Approximately 16.6 x 11.5 x 12.5 cm with air and appearance to be necrosis centrally which cannot be from the colon, splenic flexure, small bowel, pancreas or stomach. Associated abscess cannot be ruled out. Exact origin of the mass is uncertain. Mass appears to be causing pressure on the left renal artery, colon and splenic flexure, small bowel and stomach. No lymphadenopathy in the abdomen or pelvis. Small low-attenuation lesion involving the lateral right lobe of the liver and a second small low-attenuation lesion in the anterior left lobe of liverO Iron deficiency anemia, on oral iron supplement Recurrent fever, in the past diagnosed and treated for erlichinosis, later on for tularemia, dysuria with ciprofloxacin earlier then Levaquin and Flagyl A repeat CT scan of chest abdomen pelvis done on April 14, 2021 in [place] shows oligometastatic disease to the liver, patient was seen by surgical oncology Dr. Spivey as well as , medical oncologist on April 28, 2021, at that time as per patient he was given prescription for Gleevec and plan was to try Gleevec for [address] scan to assess the response, and to assess for surgical resection Plan: Discussed with patient regarding his CT scan of abdomen pelvis/chest finding which shows significant improvement in his left upper abdomen tumor, no down to 12.9 cm x 12.5 from 16.6 x 12.5 in February 2021 at the time of diagnosis. Has persistent liver lesion consistent with metastatic disease but stable. So we will continue with his daily Gleevec 400 mg p.o. As far as lower back pain is concerned, probably due to severe arthritis and disc bulging, patient was suggested to see orthopedics, may benefit from steroid injection. Patient said pain is not bothersome, many time is a positional so he would like to wait. As far as bilateral shoulder pain/discomfort more on the left side is concerned, as per MRI scan of C-spine shows left C3-7 bony foraminal narrowing, again discussed about referral to orthopedics for evaluation, patient wants to wait and watch As far as night sweats, occasional chills is concerned, patient has no associated fever as in the past he was treated with antibiotics for presumed tumor infection but now no more fever but persistent night sweating, in the past his PMD checked testosterone level considering possibility of andropause, as per patient he was in the low side of normal. So we will repeat his testosterone level, CBC and CMP on return to clinic in 1 month. In the meantime he will continue with Gleevec 400 mg p.o. daily. Patient was advised in case there is a worsening of lower back pain or upper body/shoulder pain, he need to call us or go to hospital for evaluation. Signed By: Danial Siegel M.D. <<Signature on File>>
== END 2021-09-15 09:00 | disposition home or self-care (01) ==
LOC: ONCMED 09:01
PROVIDERS: PCP Emergency Medicine Emergency Medical Services; Visit Provider Internal Medicine Hematology & Oncology
DX: C49.A0 Gastrointestinal stromal tumor, unspecified site (principal); K76.9 Liver disease, unspecified; M54.50 Low back pain, unspecified; A68.9 Relapsing fever, unspecified; Z79.899 Other long term (current) drug therapy
CPT/HCPCS: 99214

== ENCOUNTER 2021-10-12 13:23 | Outpatient (CLI) | payer OTHER, SELFPAY ==
[2021-10-12 14:04] LABS: Basophils # 0.1 10^3/uL (0.0-0.1); Basophils % 0.5 %; Eosinophils # 0.4 10^3/uL (0.0-0.8); Eosinophils % 3.8 %; Hematocrit 41.6 % (42.0-52.0); Hemoglobin 13.3 g/dL (11.7-16.6); Lymphocytes # 2.9 10^3/uL (0.8-4.8); Lymphocytes % 27.4 %; Mean Corpuscular Hemoglobin 29.5 pg (28.0-34.0); Mean Corpuscular Volume 92.2 fl (80-94); Mean Platelet Volume 9.5 fL (7.4-10.4); Monocytes # 0.8 10^3/uL (0.2-0.9); Monocytes % 7.8 %; Neutrophils # 6.36 10^3/uL (1.8-7.7); Nucleated Red Blood Cells % 0 %; Platelet Count 254 10^3/cmm (130-400); Red Blood Count 4.51 10^6/uL (4.1-5.3); Red Cell Distribution Width 14.4 % (12.1-15.1); White Blood Count 10.6 10^3/uL (4.0-10.0)
[2021-10-12 14:18] LABS: Alanine Aminotransferase 9 U/L (0-41); Albumin Level 3.6 g/dL (3.5-5.2); Alkaline Phosphatase 113 IU/L (40-130); Anion Gap 10.8 (5-19); Aspartate Amino Transferase 11 U/L (0-40); Blood Urea Nitrogen 10 mg/dL (8-23); Calcium 8.2 mg/dL (8.5-10.5); Carbon Dioxide 28 mmol/L (22-29); Chloride 103 mmol/L (98-107); Globulin 2.3 g/dL (1.3-4.6); Glucose 100 mg/dL (65-115); Osmolality Calculated 283 mOsm/kg (285-295); Potassium 4.8 mmol/L (3.5-5.1); Sodium 137 mmol/L (136-145); Total Bilirubin 0.6 mg/dL (0.15-1.2); Total Protein 5.9 g/dL (6.6-8.7)
--- NOTE | 2021-10-12 17:08 | ONC FU_ITS ---
Dr. Siegel follow up note Patient: Agapito Solorio Unit #: [id number]: [id number] Dicatated By: Danial Siegel M.D.Date of Visit:Oct 12, 2021 Onc Med Follow-up/Prog Note History of Present Illness: Mr. Agapito Solorio, is a 75-year-old gentleman with a history of recurrent fever since last year, initially he was diagnosed with Erlichinosis and treated for that and then again, as per medical record went to emergency room with high-grade fever at that time he was advised inpatient care but patient left hospital AGAINST MEDICAL ADVICE, patient returned again to the hospital where he was diagnosed with tularemia and was treated with 10 days course of doxycycline and then in February 2021 patient was evaluated by PMD at [facility] and patient told them he was not feeling any better has continued to have night sweats, intermittent fever go up to 101, he was also complaining of generalized weakness and fatigue and vague, nonspecific intermittent abdominal pain, his sed rate was 45, negative for RA screen and his hemoglobin went down to 10.1 g compared to 13 g previously, diagnosed with microcytic anemia with low iron level at 15, patient was started on oral iron and also noted his PSA was 10.2 compared to 4.4 earlier and impression was that could be due to prostatitis, patient was referred to infectious disease for FUO and he was given finasteride for BPH symptom as per patient he was given Levaquin and Flagyl which he has recently completed the course and still running off-and-on fever because of fever and abdominal pain patient underwent CT scan of abdomen pelvis on March 10, 2021 which showed large irregular mass migraine 16.6 x 11.5 x 12.5 cm in the left side of abdomen with central necrosis associated abscess cannot be ruled out. Exact origin of the mass is uncertain colon, small bowel, gastric mass as well as pancreatic mass should be considered. At least 2 small low-attenuation lesion in the liver, benign versus mets. 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 Desmin was negative. Molecular profiling positive for KIT mutation , but negative for BRAF mutation and PDGFRA mutation Patient denies smoking or alcohol use Patient is complaining of generalized weakness and fatigue but denies any melena or hematochezia, denies any hemoptysis or hematemesis, denies any jaundice, denies any abdominal distention but weight loss, attributing to recurrent fever and generalized weakness and fatigue as denies early fullness dysuria or hematuria., Patient was referred to oncology clinic at [facility] where he underwent CT scan of chest abdomen pelvis on April 14, 2021 and discussed about exploratory laparotomy with resection of GIST tumor and subsequently went to see , med onc for follow-up on April 28, [address] scan of chest abdomen pelvis, Dr. Spivey's concern was metastatic disease to the liver ,so Gleevec 400 mg p.o. daily was recommended and follow-up scan in 2 months was recommended and if there is a response surgical resection in the setting of oligometastatic disease is under consideration, patient was advised to continue the Levaquin for possible deep-seated infection in the primary tumor, as per patient he took it for some time then he stopped taking it on his own and he is not spiking any more fever , tolerating oral Gleevec 400 mg p.o. daily Follow-up CT scan of chest abdomen pelvis done on September 05, 2021 shows there is 12.3 x 12.9 cm lobulated mass which appears to encase and involve small bowel loop in the left upper quadrant, mass is smaller than previously noted on March 10, 2021 at that time it was 16.6 x 12.5 x 11.5 cm and also shows 2.2 cm ring-enhancing nodule in the anterior lateral right hepatic lobe, there are 2 low-attenuation nodule in the right hepatic lobe which measures 1.7 cm and 0.67 cm. And 0.56 cm low-attenuation nodule in the anterior left hepatic lobe, all may represent metastatic disease. MRI scan of the spine was done on August 19, 2021 showed tiny enhancing lesion in left C2 lateral, may represent small atypical hemangioma measuring 7 mm. No significant central canal stenosis. Bony foraminal narrowing worse at left C3-7. MRI scan of lumbar spine showed enhancing lesion in T12 measuring 11 mm most likely atypical hemangioma. Similar hemangioma and T9, disc bulge L5-S1 slightly impinges the traversing right S1 nerve root. Mild to moderate left L4-5 foraminal narrowing. Moderate central canal stenosis at L4-5 due to disc bulging. With impingement traversing left greater than right L5 nerve root bilaterally. Came for follow-up, denies any specific complaints except chronic lower back pain and bilateral shoulder pain/discomfort but under control with current pain medication. No nausea or vomiting, no diarrhea or constipation, no abdominal pain, no fever chills, Tolerating Gleevec 400 mg p.o. daily well otherwise Medications: clonazePAM (0.25 mg) Tablet Oral t.i.d. PRN, Ferrous Sulfate (325 (65 fe) mg) Tablet Oral daily, Finasteride (5 mg) Tablet Oral daily, Gleevec 400 mg (of 400 mg) Tablet Oral daily Allergies: No Known Allergies. Review of Systems: Review of Systems is not available for this patient. Vital Signs: Performed on Oct 12, 2021 15:30 Height - 72.00 in Weight - 211.4 lbs (HIGH) BSA - 2.18 sq.m BMI - 28.67 Temperature - 97.9 F (LOW) Pulse - 58 /min (LOW) Respiration - 16 /min BP - 112/67 mm(hg) O2 Sat - 98 % Pain - 5 Fatigue - 4 Performance Status: 0 - Fully active, able to carry on all predisease activities without restrictions. (ECOG) Physical Examination: ENMT - No mouth sores, no thrush, no jaundice, Respiratory - Lungs are clear to auscultation, Cardiovascular - Regular rate and rhythm of heart, Abdomen - Soft, bowel sounds present, Extremities - No visible edema. Lab/Imaging: Test performed on Oct 12, 2021 13:49 Sodium 137 mmol/L Potassium 4.8 mmol/L Chloride 103 mmol/L CO2 28 mmol/L Anion Gap 10.8 BUN 10 mg/dL Creatinine 0.7 mg/dL Cr Clearance (Est) 121.7700 mL/min Glucose 100 mg/dL Osmolality - Calculated 283 mOsm/kg Calcium 8.2 mg/dL Protein, Total 5.9 g/dL Albumin 3.6 g/dL Globulin 2.3 g/dL Bilirubin, Total 0.6 mg/dL ALT (SGPT) 9 U/L AST (SGOT) 11 U/L Alkaline Phosphatase 113 IU/L WBC 10.6 10 3/uL RBC 4.51 10 6/uL HGB 13.3 g/dL HCT 41.6 % MCV 92.2 fl MCH 29.5 pg MCHC 32.0 g/dL RDW 14.4 % Platelet Count 254 10 3/cmm MPV 9.5 fL Neutrophils 6.36 10 3/uL Lymphocytes 2.9 10 3/uL Monocytes 0.8 10 3/uL Eosinophils 0.4 10 3/uL Basophils 0.1 10 3/uL Neutrophil % 60.0 % Lymphocyte % 27.4 % Monocyte % 7.8 % Eosinophil % 3.8 % Basophils % 0.5 % NRBC % 0 % Impression: Gastrointestinal stromal tumor, spindle cell type per CT-guided biopsy of left abdominal mass done on March 15, 2021, final pathology report neoplasm stained for c-kit, DOG1, SMA, S100. Desmin was negative CT scan of abdomen done on March 10, 2021 showed large irregular mass in the left side of abdomen Approximately 16.6 x 11.5 x 12.5 cm with air and appearance to be necrosis centrally which cannot be from the colon, splenic flexure, small bowel, pancreas or stomach. Associated abscess cannot be ruled out. Exact origin of the mass is uncertain. Mass appears to be causing pressure on the left renal artery, colon and splenic flexure, small bowel and stomach. No lymphadenopathy in the abdomen or pelvis. Small low-attenuation lesion involving the lateral right lobe of the liver and a second small low-attenuation lesion in the anterior left lobe of liverO Iron deficiency anemia, on oral iron supplement Recurrent fever, in the past diagnosed and treated for erlichinosis, later on for tularemia, dysuria with ciprofloxacin earlier then Levaquin and Flagyl A repeat CT scan of chest abdomen pelvis done on April 14, 2021 in [place] shows oligometastatic disease to the liver, patient was seen by surgical oncology Dr. Spivey as well as , medical oncologist on April 28, 2021, at that time as per patient he was given prescription for Gleevec and plan was to try Gleevec for [address] scan to assess the response, and to assess for surgical resection Plan: Discussed with patient regarding his labs white blood count 10.6 compared to 15,000 previously hemoglobin 13.3 g mercury 41.6 platelets 254,000 CMP within normal limits Clinically, patient doing well with no new signs symptoms history of disease progression, tolerating Gleevec 400 mg p.o. daily well, his lab work-up is within normal range except mild isolated leukocytosis which is improving,. Patient said he has history of elevated PSA as high as 10, We will continue with same and he will return to clinic in 1 month with CBC, CMP and PSA and if PSA continues to go up, will refer him to urology for evaluation Signed By: Danial Siegel M.D. <<Signature on File>>
[2021-10-15 10:08] LABS: Testosterone, Free 56.2 pg/mL (6.0-73.0)
== END 2021-10-12 13:24 | disposition home or self-care (01) ==
LOC: ONCMED 13:25
PROVIDERS: PCP Emergency Medicine Emergency Medical Services; Visit Provider Internal Medicine Hematology & Oncology
DX: D48.1 Neoplasm of uncertain behavior of connective and other soft tissue (principal); K76.9 Liver disease, unspecified; R19.09 Other intra-abdominal and pelvic swelling, mass and lump; D50.9 Iron deficiency anemia, unspecified; A68.9 Relapsing fever, unspecified; Z79.899 Other long term (current) drug therapy; R97.20 Elevated prostate specific antigen [PSA]
CPT/HCPCS: 36415; 80053; 84402; 85025; 99214

== ENCOUNTER 2021-11-17 12:17 | Outpatient (CLI) | payer OTHER, SELFPAY ==
[2021-11-17 12:45] LABS: Basophils # 0.1 10^3/uL (0.0-0.1); Basophils % 0.4 %; Eosinophils # 0.6 10^3/uL (0.0-0.8); Eosinophils % 4.3 %; Hematocrit 41.7 % (42.0-52.0); Hemoglobin 13.4 g/dL (11.7-16.6); Lymphocytes % 21.9 %; Mean Corpuscular HGB Conc 32.1 g/dL (30.0-36.0); Mean Corpuscular Hemoglobin 29.4 pg (28.0-34.0); Mean Corpuscular Volume 91.4 fl (80-94); Mean Platelet Volume 9.4 fL (7.4-10.4); Monocytes # 1.1 10^3/uL (0.2-0.9); Monocytes % 8.3 %; Neutrophils # 8.92 10^3/uL (1.8-7.7); Neutrophils % 64.7 %; Nucleated Red Blood Cells % 0 %; Platelet Count 248 10^3/cmm (130-400); Red Blood Count 4.56 10^6/uL (4.1-5.3); Red Cell Distribution Width 14.6 % (12.1-15.1); White Blood Count 13.8 10^3/uL (4.0-10.0)
[2021-11-17 13:17] LABS: Alanine Aminotransferase 11 U/L (0-41); Albumin Level 3.9 g/dL (3.5-5.2); Alkaline Phosphatase 103 IU/L (40-130); Anion Gap 12.2 (5-19); Aspartate Amino Transferase 14 U/L (0-40); Blood Urea Nitrogen 15 mg/dL (8-23); Calcium 8.4 mg/dL (8.5-10.5); Carbon Dioxide 26 mmol/L (22-29); Chloride 101 mmol/L (98-107); Globulin 2.6 g/dL (1.3-4.6); Glucose 107 mg/dL (65-115); Osmolality Calculated 281 mOsm/kg (285-295); Potassium 4.2 mmol/L (3.5-5.1); Sodium 135 mmol/L (136-145); Total Bilirubin 0.7 mg/dL (0.15-1.2); Total Protein 6.5 g/dL (6.6-8.7)
--- NOTE | 2021-11-21 09:16 | ONC FU_ITS ---
Rea Montero Progress Note Patient: Agapito Solorio Unit #: [id number]: [id number] Dicatated By: Rae Montero N.P.Date of Visit:Nov 17, 2021 Onc MED Follow-up/Prog Note Chief Complaint: . Abdominal mass History of Present Illness: Mr. Agapito Solorio, is a 75-year-old gentleman with a history of recurrent fever since last year, initially he was diagnosed with Erlichinosis and treated for that and then again, as per medical record went to emergency room with high-grade fever at that time he was advised inpatient care but patient left hospital AGAINST MEDICAL ADVICE, patient returned again to the hospital where he was diagnosed with tularemia and was treated with 10 days course of doxycycline and then in February 2021 patient was evaluated by PMD at [facility] and patient told them he was not feeling any better has continued to have night sweats, intermittent fever go up to 101, he was also complaining of generalized weakness and fatigue and vague, nonspecific intermittent abdominal pain, his sed rate was 45, negative for RA screen and his hemoglobin went down to 10.1 g compared to 13 g previously, diagnosed with microcytic anemia with low iron level at 15, patient was started on oral iron and also noted his PSA was 10.2 compared to 4.4 earlier and impression was that could be due to prostatitis, patient was referred to infectious disease for FUO and he was given finasteride for BPH symptom as per patient he was given Levaquin and Flagyl which he has recently completed the course and still running off-and-on fever because of fever and abdominal pain patient underwent CT scan of abdomen pelvis on March 10, 2021 which showed large irregular mass migraine 16.6 x 11.5 x 12.5 cm in the left side of abdomen with central necrosis associated abscess cannot be ruled out. Exact origin of the mass is uncertain colon, small bowel, gastric mass as well as pancreatic mass should be considered. At least 2 small low-attenuation lesion in the liver, benign versus mets. 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 Desmin was negative. Molecular profiling positive for KIT mutation , but negative for BRAF mutation and PDGFRA mutation Patient denies smoking or alcohol use Patient is complaining of generalized weakness and fatigue but denies any melena or hematochezia, denies any hemoptysis or hematemesis, denies any jaundice, denies any abdominal distention but weight loss, attributing to recurrent fever and generalized weakness and fatigue as denies early fullness dysuria or hematuria., Patient was referred to oncology clinic at [facility] where he underwent CT scan of chest abdomen pelvis on April 14, 2021 and discussed about exploratory laparotomy with resection of GIST tumor and subsequently went to see , med onc for follow-up on April 28, [address] scan of chest abdomen pelvis, Dr. Spivey's concern was metastatic disease to the liver ,so Gleevec 400 mg p.o. daily was recommended and follow-up scan in 2 months was recommended and if there is a response surgical resection in the setting of oligometastatic disease is under consideration, patient was advised to continue the Levaquin for possible deep-seated infection in the primary tumor, as per patient he took it for some time then he stopped taking it on his own and he is not spiking any more fever , tolerating oral Gleevec 400 mg p.o. daily Follow-up CT scan of chest abdomen pelvis done on September 05, 2021 shows there is 12.3 x 12.9 cm lobulated mass which appears to encase and involve small bowel loop in the left upper quadrant, mass is smaller than previously noted on March 10, 2021 at that time it was 16.6 x 12.5 x 11.5 cm and also shows 2.2 cm ring-enhancing nodule in the anterior lateral right hepatic lobe, there are 2 low-attenuation nodule in the right hepatic lobe which measures 1.7 cm and 0.67 cm. And 0.56 cm low-attenuation nodule in the anterior left hepatic lobe, all may represent metastatic disease. MRI scan of the spine was done on August 19, 2021 showed tiny enhancing lesion in left C2 lateral, may represent small atypical hemangioma measuring 7 mm. No significant central canal stenosis. Bony foraminal narrowing worse at left C3-7. MRI scan of lumbar spine showed enhancing lesion in T12 measuring 11 mm most likely atypical hemangioma. Similar hemangioma and T9, disc bulge L5-S1 slightly impinges the traversing right S1 nerve root. Mild to moderate left L4-5 foraminal narrowing. Moderate central canal stenosis at L4-5 due to disc bulging. With impingement traversing left greater than right L5 nerve root bilaterally. Patient presents today for follow-up accompanied by his . He states he has increased fatigue constantly. He has generalized aches and pains especially in his shoulders. His appetite has been good. No fever, chills, night sweats. No shortness of breath, cough, chest pain. No abdominal pain. He is having urinary frequency with a slow flow. No dysuria. He would like referral to urology for that and for an elevated PSA which was 5.860. Because of his generalized pain he and his would also like to have a bone scan to rule out any metastatic processes. Review Of Symptoms:See above. Past Medical History: Anxiety B Complex deficiency Benign prostatic hyperplasia Hyperlipidemia Hypertension Microcytic anemia Osteoarthritis Ventral hernia Past Surgical History: Colonoscopy Foot mass excision Allergies: No Known Allergies. Medications: clonazePAM (0.25 mg) Tablet Oral t.i.d. PRN Ferrous Sulfate (325 (65 fe) mg) Tablet Oral daily Finasteride (5 mg) Tablet Oral daily Gleevec 400 mg (of 400 mg) Tablet Oral daily Family History: Mr. Solorio's mother at age 80. Mr. Solorio's father at age 80. Mr. Solorio has 2 brothers: 2 . He has 2 sisters: 2 alive. Social History: Mr. Solorio is . Mr. Solorio has never smoked. He is an active drinker. Drinks beer/wine 2 x week. Physical Examination: Performed on Nov 17, 2021 14:34: Height - 72.00 in, Weight - 210.4 lbs (LOW), BSA - 2.18 sq.m, BMI - 28.54, Temperature - 97.8 F (LOW), Pulse - 63 /min, Respiration - 16 /min, BP - 117/73 mm(hg), O2 Sat - 97 %, Pain - 6, and Fatigue - 8. Performance Status: 0 - Fully active, able to carry on all predisease activities without restrictions. (ECOG) Constitutional Alert, cooperative, oriented. Mood and affect appropriate. Appears close to chronological age. Well nourished. Well developed. Head Normocephalic; no scars. Eyes Conjunctivae and sclerae are clear and without icterus. Pupils are reactive and equal. Respiratory Lungs are clear to auscultation without rhonchi or wheezing. Cardiovascular Regular rate and rhythm of heart without murmurs, gallops or rubs. Abdomen Non-tender, non-distended, no masses, ascites or hepatosplenomegaly. Good bowel sounds. No guarding or rebound tenderness. Extremities No visible deformities, no edema Musculoskeletal No tenderness or swelling, normal range of motion without obvious weakness. Psychiatric Alert and oriented times three. Coherent speech. Verbalizes understanding of our discussions today. Laboratory: Test performed on Nov 17, 2021 12:35 Sodium 135 mmol/L Potassium 4.2 mmol/L Chloride 101 mmol/L CO2 26 mmol/L Anion Gap 12.2 BUN 15 mg/dL Creatinine 0.7 mg/dL Cr Clearance (Est) 121.19 mL/min Glucose 107 mg/dL Osmolality - Calculated 281 mOsm/kg Calcium 8.4 mg/dL Protein, Total 6.5 g/dL Albumin 3.9 g/dL Globulin 2.6 g/dL Bilirubin, Total 0.7 mg/dL ALT (SGPT) 11 U/L AST (SGOT) 14 U/L Alkaline Phosphatase 103 IU/L WBC 13.8 10 3/uL RBC 4.56 10 6/uL HGB 13.4 g/dL HCT 41.7 % MCV 91.4 fl MCH 29.4 pg MCHC 32.1 g/dL RDW 14.6 % Platelet Count 248 10 3/cmm MPV 9.4 fL Neutrophils 8.92 10 3/uL Lymphocytes 3.0 10 3/uL Monocytes 1.1 10 3/uL Eosinophils 0.6 10 3/uL Basophils 0.1 10 3/uL Neutrophil % 64.7 % Lymphocyte % 21.9 % Monocyte % 8.3 % Eosinophil % 4.3 % Basophils % 0.4 % NRBC % 0 % PSA 5.860 ng/mL Impression: Gastrointestinal stromal tumor, spindle cell type per CT-guided biopsy of left abdominal mass done on March 15, 2021, final pathology report neoplasm stained for c-kit, DOG1, SMA, S100. Desmin was negative CT scan of abdomen done on March 10, 2021 showed large irregular mass in the left side of abdomen Approximately 16.6 x 11.5 x 12.5 cm with air and appearance to be necrosis centrally which cannot be from the colon, splenic flexure, small bowel, pancreas or stomach. Associated abscess cannot be ruled out. Exact origin of the mass is uncertain. Mass appears to be causing pressure on the left renal artery, colon and splenic flexure, small bowel and stomach. No lymphadenopathy in the abdomen or pelvis. Small low-attenuation lesion involving the lateral right lobe of the liver and a second small low-attenuation lesion in the anterior left lobe of liverO Iron deficiency anemia, on oral iron supplement Recurrent fever, in the past diagnosed and treated for erlichinosis, later on for tularemia, dysuria with ciprofloxacin earlier then Levaquin and Flagyl A repeat CT scan of chest abdomen pelvis done on April 14, 2021 in [place] shows oligometastatic disease to the liver, patient was seen by surgical oncology Dr. Spivey as well as , medical oncologist on April 28, 2021, at that time as per patient he was given prescription for Gleevec and plan was to try Gleevec for [address] scan to assess the response, and to assess for surgical resection Plan: Labs were reviewed with patient. WBC at 13.8, hemoglobin 13.4, hematocrit 41.7 and platelet count 248,000. Sodium level slightly low at 135, calcium 8.4 and other labs are within normal limits his PSA is at 5.860 which patient states has been as high as 10 in the past but at that time he had prostatitis. Clinically, patient doing well with no new signs symptoms history of disease progression, tolerating Gleevec 400 mg p.o. daily well. A bone scan has been ordered for increased musculoskeletal pain. A urology consultation for Dr. Smith has been placed due to elevated PSA and urinary symptoms. We will continue Gleevec 400 mg p.o. daily. He will return to the clinic in 1 month for a visit with Dr. Siegel with a CBC, CMP and PSA. Signed By: Rea Montero N.P. <<Signature on File>>
== END 2021-11-17 12:18 | disposition home or self-care (01) ==
PROVIDERS: PCP Emergency Medicine Emergency Medical Services; Visit Provider Nurse Practitioner Family
DX: C49.A9 Gastrointestinal stromal tumor of other sites (principal); C78.7 Secondary malignant neoplasm of liver and intrahepatic bile duct; D50.9 Iron deficiency anemia, unspecified; R97.20 Elevated prostate specific antigen [PSA]; Z79.899 Other long term (current) drug therapy
CPT/HCPCS: 36415; 80053; 84153; 85025; 99214

== ENCOUNTER 2021-11-30 08:23 | Outpatient (CLI) | payer OTHER, SELFPAY ==
--- NOTE | 2021-11-30 08:37 | NM_ITS ---
WS: [id number] NUCLEAR MEDICINE BONE SCAN Radiopharmaceutical: 23.6 Tc-99m MDP mCi IV Injection site: LEFT antecubital Postinjection imaging delay: 1 hr CLINICAL INFORMATION: BONE PAIN COMPARISON: None. FINDINGS: Bone lesions: Tiny focus of faint bony uptake involving the LEFT parietal calvarium. This could be fu rther evaluated with head CT. Otherwise no evidence of metastatic disease. Soft tissue contours: Normal. Kidneys: Normal. Other findings: Degenerative type uptake involving both shoulders, bilateral knees, and RIGHT wrist. Cortical uptake involving the proximal tibial shafts bilaterally in a symmetric fashion likely due to hypertrophic osteoarthropathy or stress reaction. NM/NM bone scan whole body* [id number] IMPRESSION: Tiny focus of faint bony uptake involving the LEFT parietal calvarium. This can be further evaluated with head CT. Otherwise no evidence of metastatic disease .
== END 2021-11-30 08:24 | disposition home or self-care (01) ==
LOC: RAD 08:25
PROVIDERS: PCP Emergency Medicine Emergency Medical Services; Visit Provider Nurse Practitioner Family
DX: M89.8X9 Other specified disorders of bone, unspecified site (principal)
CPT/HCPCS: 78306; A9561

== ENCOUNTER → 2021-12-01 15:17 | Outpatient (BNVA) | payer OTHER, SELFPAY | PROVIDERS: PCP Emergency Medicine Emergency Medical Services; Visit Provider Nurse Practitioner Family | DX: N40.1 Benign prostatic hyperplasia with lower urinary tract symptoms (principal); N13.8 Other obstructive and reflux uropathy | CPT/HCPCS: 81003 ==

== ENCOUNTER 2021-12-27 11:26 | Outpatient (CLI) | payer OTHER, SELFPAY ==
[2021-12-27 11:54] LABS: Basophils # 0.1 10^3/uL (0.0-0.1); Basophils % 0.9 %; Eosinophils # 0.5 10^3/uL (0.0-0.8); Hematocrit 41.9 % (42.0-52.0); Hemoglobin 13.4 g/dL (11.7-16.6); Lymphocytes # 3.5 10^3/uL (0.8-4.8); Mean Corpuscular Hemoglobin 29.9 pg (28.0-34.0); Mean Corpuscular Volume 93.5 fl (80-94); Mean Platelet Volume 9.2 fL (7.4-10.4); Monocytes # 0.7 10^3/uL (0.2-0.9); Monocytes % 6.8 %; Neutrophils # 5.71 10^3/uL (1.8-7.7); Neutrophils % 53.9 %; Nucleated Red Blood Cells % 0 %; Platelet Count 261 10^3/cmm (130-400); Red Blood Count 4.48 10^6/uL (4.1-5.3); Red Cell Distribution Width 14.3 % (12.1-15.1); White Blood Count 10.6 10^3/uL (4.0-10.0)
[2021-12-27 12:23] LABS: Alanine Aminotransferase 11 U/L (0-41); Albumin Level 3.8 g/dL (3.5-5.2); Alkaline Phosphatase 89 IU/L (40-130); Anion Gap 12.3 (5-19); Aspartate Amino Transferase 13 U/L (0-40); Blood Urea Nitrogen 11 mg/dL (8-23); Calcium 8.9 mg/dL (8.5-10.5); Carbon Dioxide 24 mmol/L (22-29); Chloride 103 mmol/L (98-107); Globulin 2.9 g/dL (1.3-4.6); Glucose 85 mg/dL (65-115); Osmolality Calculated 279 mOsm/kg (285-295); Potassium 4.3 mmol/L (3.5-5.1); Sodium 135 mmol/L (136-145); Total Bilirubin 0.3 mg/dL (0.15-1.2); Total Protein 6.7 g/dL (6.6-8.7)
--- NOTE | 2022-01-02 17:18 | ONC FU_ITS ---
Dr. Siegel follow up note Patient: Agapito Solorio Unit #: [id number]: [id number] Dicatated By: Danial Siegel M.D.Date of Visit:Dec 27, 2021 Onc Med Follow-up/Prog Note History of Present Illness: Mr. Agapito Solorio, is a 76-year-old gentleman with a history of recurrent fever since last year, initially he was diagnosed with Erlichinosis and treated for that and then again, as per medical record went to emergency room with high-grade fever at that time he was advised inpatient care but patient left hospital AGAINST MEDICAL ADVICE, patient returned again to the hospital where he was diagnosed with tularemia and was treated with 10 days course of doxycycline and then in February 2021 patient was evaluated by PMD at [facility] and patient told them he was not feeling any better has continued to have night sweats, intermittent fever go up to 101, he was also complaining of generalized weakness and fatigue and vague, nonspecific intermittent abdominal pain, his sed rate was 45, negative for RA screen and his hemoglobin went down to 10.1 g compared to 13 g previously, diagnosed with microcytic anemia with low iron level at 15, patient was started on oral iron and also noted his PSA was 10.2 compared to 4.4 earlier and impression was that could be due to prostatitis, patient was referred to infectious disease for FUO and he was given finasteride for BPH symptom as per patient he was given Levaquin and Flagyl which he has recently completed the course and still running off-and-on fever because of fever and abdominal pain patient underwent CT scan of abdomen pelvis on March 10, 2021 which showed large irregular mass migraine 16.6 x 11.5 x 12.5 cm in the left side of abdomen with central necrosis associated abscess cannot be ruled out. Exact origin of the mass is uncertain colon, small bowel, gastric mass as well as pancreatic mass should be considered. At least 2 small low-attenuation lesion in the liver, benign versus mets. 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 Desmin was negative. Molecular profiling positive for KIT mutation , but negative for BRAF mutation and PDGFRA mutation Patient denies smoking or alcohol use Patient is complaining of generalized weakness and fatigue but denies any melena or hematochezia, denies any hemoptysis or hematemesis, denies any jaundice, denies any abdominal distention but weight loss, attributing to recurrent fever and generalized weakness and fatigue as denies early fullness dysuria or hematuria., Patient was referred to oncology clinic at [facility] where he underwent CT scan of chest abdomen pelvis on April 14, 2021 and discussed about exploratory laparotomy with resection of GIST tumor and subsequently went to see , med onc for follow-up on April 28, [address] scan of chest abdomen pelvis, Dr. Spivey's concern was metastatic disease to the liver ,so Gleevec 400 mg p.o. daily was recommended and follow-up scan in 2 months was recommended and if there is a response surgical resection in the setting of oligometastatic disease is under consideration, patient was advised to continue the Levaquin for possible deep-seated infection in the primary tumor, as per patient he took it for some time then he stopped taking it on his own and he is not spiking any more fever , tolerating oral Gleevec 400 mg p.o. daily Follow-up CT scan of chest abdomen pelvis done on September 05, 2021 shows there is 12.3 x 12.9 cm lobulated mass which appears to encase and involve small bowel loop in the left upper quadrant, mass is smaller than previously noted on March 10, 2021 at that time it was 16.6 x 12.5 x 11.5 cm and also shows 2.2 cm ring-enhancing nodule in the anterior lateral right hepatic lobe, there are 2 low-attenuation nodule in the right hepatic lobe which measures 1.7 cm and 0.67 cm. And 0.56 cm low-attenuation nodule in the anterior left hepatic lobe, all may represent metastatic disease. MRI scan of the spine was done on August 19, 2021 showed tiny enhancing lesion in left C2 lateral, may represent small atypical hemangioma measuring 7 mm. No significant central canal stenosis. Bony foraminal narrowing worse at left C3-7. MRI scan of lumbar spine showed enhancing lesion in T12 measuring 11 mm most likely atypical hemangioma. Similar hemangioma and T9, disc bulge L5-S1 slightly impinges the traversing right S1 nerve root. Mild to moderate left L4-5 foraminal narrowing. Moderate central canal stenosis at L4-5 due to disc bulging. With impingement traversing left greater than right L5 nerve root bilaterally. Came for follow-up, denies any specific complaint except persistent generalized weakness and fatigue. No abdominal pain, no nausea or vomiting, no fever or chills, no diarrhea or constipation but off and on patchy rash, patient is also off oral iron for the last 4 weeks due to excessive gas and GI intolerance. Denies any shortness of breath or wheezing, denies any shortness of breath on exertion or palpitation. But complaining of not getting enough sleep and up-and-down dreams but never been evaluated for sleep apnea. Tolerating Gleevec well otherwise Medications: clonazePAM (0.25 mg) Tablet Oral t.i.d. PRN, Ferrous Sulfate (325 (65 fe) mg) Tablet Oral daily, Finasteride (5 mg) Tablet Oral daily, Gleevec 400 mg (of 400 mg) Tablet Oral daily Allergies: No Known Allergies. Review of Systems: Review of Systems is not available for this patient. Vital Signs: Performed on Dec 27, 2021 15:29 Height - 72.00 in Weight - 219.0 lbs (HIGH) BSA - 2.21 sq.m BMI - 29.70 Temperature - 98.0 F (LOW) Pulse - 75 /min Respiration - 18 /min BP - 131/75 mm(hg) O2 Sat - 99 % Pain - 3 Fatigue - 9 Performance Status: 0 - Fully active, able to carry on all predisease activities without restrictions. (ECOG) Physical Examination: ENMT - No mouth sores, no thrush, no jaundice, no cervical lymphadenopathy, Respiratory - Poor air entry otherwise clear, Cardiovascular - Regular rate and rhythm of heart, Abdomen - Soft, bowel sounds present, Extremities - No visible edema or rash. Lab/Imaging: Test performed on Nov 17, 2021 12:35 Sodium 135 mmol/L Potassium 4.2 mmol/L Chloride 101 mmol/L CO2 26 mmol/L Anion Gap 12.2 BUN 15 mg/dL Creatinine 0.7 mg/dL Cr Clearance (Est) 121.19 mL/min Glucose 107 mg/dL Osmolality - Calculated 281 mOsm/kg Calcium 8.4 mg/dL Protein, Total 6.5 g/dL Albumin 3.9 g/dL Globulin 2.6 g/dL Bilirubin, Total 0.7 mg/dL ALT (SGPT) 11 U/L AST (SGOT) 14 U/L Alkaline Phosphatase 103 IU/L WBC 13.8 10 3/uL RBC 4.56 10 6/uL HGB 13.4 g/dL HCT 41.7 % MCV 91.4 fl MCH 29.4 pg MCHC 32.1 g/dL RDW 14.6 % Platelet Count 248 10 3/cmm MPV 9.4 fL Neutrophils 8.92 10 3/uL Lymphocytes 3.0 10 3/uL Monocytes 1.1 10 3/uL Eosinophils 0.6 10 3/uL Basophils 0.1 10 3/uL Neutrophil % 64.7 % Lymphocyte % 21.9 % Monocyte % 8.3 % Eosinophil % 4.3 % Basophils % 0.4 % NRBC % 0 % PSA 5.860 ng/mL Impression: Gastrointestinal stromal tumor, spindle cell type per CT-guided biopsy of left abdominal mass done on March 15, 2021, final pathology report neoplasm stained for c-kit, DOG1, SMA, S100. Desmin was negative CT scan of abdomen done on March 10, 2021 showed large irregular mass in the left side of abdomen Approximately 16.6 x 11.5 x 12.5 cm with air and appearance to be necrosis centrally which cannot be from the colon, splenic flexure, small bowel, pancreas or stomach. Associated abscess cannot be ruled out. Exact origin of the mass is uncertain. Mass appears to be causing pressure on the left renal artery, colon and splenic flexure, small bowel and stomach. No lymphadenopathy in the abdomen or pelvis. Small low-attenuation lesion involving the lateral right lobe of the liver and a second small low-attenuation lesion in the anterior left lobe of liverO Iron deficiency anemia, on oral iron supplement Recurrent fever, in the past diagnosed and treated for erlichinosis, later on for tularemia, dysuria with ciprofloxacin earlier then Levaquin and Flagyl A repeat CT scan of chest abdomen pelvis done on April 14, 2021 in [place] shows oligometastatic disease to the liver, patient was seen by surgical oncology Dr. Spivey as well as , medical oncologist on April 28, 2021, at that time as per patient he was given prescription for Gleevec and plan was to try Gleevec for [address] scan to assess the response, and to assess for surgical resection Plan: Discussed with patient regarding his labs white blood count 10.6 hemoglobin 13.4 hematocrit 41.9 platelets 261,000 CMP within normal limits PSA 9.28 compared to 5.86 previously Clinically, patient doing well with no new signs symptom suggestive of disease progression, tolerating Gleevec 400 mg p.o. daily well. His follow-up lab work-up shows persistent eosinophilia, etiology remains unclear could be due to Gleevec therapy, with off and on skin rash, concern is whether patient is developing early DRESS syndrome (drug reaction with eosinophilia and systemic symptoms) On exam, there is no evidence of lymphadenopathy no thrombocytopenia or atypical lymphocytosis As for generalized weakness and fatigue is concerned, probably, could be multifactorial including underlying sleep apnea, patient was suggested to consider sleep study, if sleep apnea is confirmed, he may benefit from CPAP machine, patient is reluctant and wants to think about this. Patient is tolerating Gleevec therapy well, will continue same and consider follow-up CT scan of abdomen pelvis in a month, patient return to clinic in a month with CBC CMP and follow-up CT scan of abdomen pelvis. Patient of was inquiring regarding role of ivermectin in his condition, patient was advised that there is not enough data regarding role of ivermectin in GIST tumor and so we will not recommend ivermectin therapy Patient was also advised in case there is a worsening of rash, or progressive shortness of breath or wheezing he need to hold Gleevec and call us immediately or go to hospital for evaluation. Signed By: Danial Siegel M.D. <<Signature on File>>
== END 2021-12-27 11:27 | disposition home or self-care (01) ==
PROVIDERS: Nurse Practitioner Family; PCP Emergency Medicine Emergency Medical Services; Visit Provider Internal Medicine Hematology & Oncology
DX: C49.A2 Gastrointestinal stromal tumor of stomach (principal); C78.7 Secondary malignant neoplasm of liver and intrahepatic bile duct; D50.9 Iron deficiency anemia, unspecified; Z86.19 Personal history of other infectious and parasitic diseases; R53.1 Weakness; R53.83 Other fatigue; R97.20 Elevated prostate specific antigen [PSA]
CPT/HCPCS: 36415; 80053; 81003; 84153; 85025; 99215

== ENCOUNTER 2022-02-17 11:27 | Oncology outpatient (recurring) (ONCR) | payer OTHER, SELFPAY ==
--- NOTE | 2022-02-17 11:32 | CT_ITS ---
WS: [id number] CT ABDOMEN AND PELVIS WITH CONTRAST HISTORY: GASTROINTESTINAL STROMAL TUMOR TECHNIQUE: Imaging performed of the abdomen and pelvis with IV contrast. Single phase imaging of the abdomen. Coronal and sagittal reformats are submitted. All CT scans at [facility] use at [address] one of these dose optimization techniques: automated exposure control; mA and/or kV adjustment per patient size (includes targeted exams where dose is matched to clinical indication); or iterative re construction. IV CONTRAST: Omnipaque 300; 95 mL IV. Oral contrast: Yes. DLP: 1978.61 mGy.cm COMPARISON: 09/05/2021 Lower thorax: Lung bases are clear. Heart is normal size. No hiatal hernia. Stable nodule central gaston cification paraspinal on the LEFT UV vertebral body is stable. Liver/biliary system: Metastatic lesions in the liver are reidentified. The largest in the lateral smith perior RIGHT lobe of the liver with a maximum diameter of 2.1 cm is unchanged. There are a few additi onal very small hypoechoic areas along the surface of the RIGHT and LEFT lobe of the liver which coul d been present on prior studies. Also noted is a 1.2 cm metastatic lesion in the RIGHT lobe of liver posterior to the gallbladder which is stable. Overall without progression or significant improvement. No bile duct dilatation. Portal vein remains patent. Gallbladder: Normal. No gallstones or wall thickening. No pericholecystic fluid. Pancreas: Normal size pancreas and pancreatic duct. No adjacent inflammation. Spleen: Normal size spleen. No mass or infarct. Adrenal glands: Normal. Right kidney: Normal size kidney with several small cysts which are stable. Largest cyst measures 2.8 cm. Left kidney: Normal. Aorta: Mild atherosclerosis with no aneurysm. Lymphadenopathy/mesentery: There is a large lobulated mass centered within the LEFT upper abdomen whi ch has been previously described. This mass may be several confluent masses together. The overall siz e is 10.0 x 10.5 x 10.3 cm. Lobulated margins with a few scattered foci of air, calcifications and en hancement. This mesenteric mass abuts a small portion of the pancreas and the superior LEFT kidney an d partially encases the proximal jejunum although there is no small bowel obstruction at this time. A s compared to 09/05/2021 there has been a slight decrease in size. There is additional mild mesenteri c stranding and a few additional smaller adjacent lymph nodes or mesenteric deposits. Overall a mild improvement. Free fluid: None. GI tract: Normally distended stomach. No small bowel obstruction. Again noted is the partial encaseme nt of the proximal jejunum and invasion of the wall. Abdominal wall: Unremarkable abdominal wall. No hernia. Pelvis: No free fluid or adenopathy. Minimally distended urinary bladder and mild prostate enlargemen t. Bones: Unremarkable. CT/CT abdomen pelvis w con* [id number] IMPRESSION: 1. Slight decrease in size of the large lobulated neoplastic mass in the LEFT upper abdomen encasing invading the proximal jejunum since 09/05/2021. Mass now measures 10.0 x 10.5 x 10.3 cm. Overall improvement of the adjacent mesenteric stranding which may have been carcinomatosis. No increase in size of the adjac ent mesenteric lymph nodes. 2. No ascites. 3. Hepatic metastatic sites are stable. The largest measures 2.1 cm.
[2022-02-17] MEDS: iohexol 300 mg/mL 100 mL Btl IV (13:46)
== END 2022-02-23 11:09 | disposition home or self-care (01) ==
LOC: RAD 11:27
PROVIDERS: PCP Emergency Medicine Emergency Medical Services; Visit Provider Internal Medicine Hematology & Oncology
DX: C49.A0 Gastrointestinal stromal tumor, unspecified site (principal); C78.7 Secondary malignant neoplasm of liver and intrahepatic bile duct
CPT/HCPCS: 74177

== ENCOUNTER 2022-02-23 11:43 | Oncology outpatient (recurring) (ONCR) | payer OTHER, SELFPAY | END 2022-03-16 23:59 | disposition home or self-care (01) | LOC: ONCMED 11:44 | PROVIDERS: PCP Emergency Medicine Emergency Medical Services; Visit Provider Internal Medicine Hematology & Oncology | DX: C49.A0 Gastrointestinal stromal tumor, unspecified site (principal); N13.8 Other obstructive and reflux uropathy; N40.1 Benign prostatic hyperplasia with lower urinary tract symptoms; R97.20 Elevated prostate specific antigen [PSA]; Z79.899 Other long term (current) drug therapy | CPT/HCPCS: 80053; 81003; 85025; 99213; 99214 ==

== ENCOUNTER 2022-05-17 09:05 | Oncology outpatient (recurring) (ONCR) | payer OTHER, SELFPAY ==
--- NOTE | 2022-05-17 10:00 | US_ITS ---
WS: [id number] INDICATION: RIGHT groin pain TECHNIQUE: Ultrasound soft tissue FINDINGS: Ultrasound soft tissue LEFT groin in the area of concern. Enlarged lymph node in the LEFT g roin measuring 1.9 x 2.8 x 0.7 cm with cortical thickening. Preserved fatty hilum. A few other slight ly prominent lymph nodes. Recommend clinical correlation. This can be further evaluated with ultrasou nd-guided biopsy if clinical concern. US/US soft tissue/extremity [id number] IMPRESSION: Enlarged lymph node in the LEFT groin area of concern measuring 1.9 x 2.8 x 0.7 cm with mild cortical thickening and preservation of the normal fa tty hilum. This is indeterminate and could be further evaluated ultrasound guid ed biopsy if indicated.
--- NOTE | 2022-05-17 10:30 | US_ITS ---
WS: [id number] INDICATION: RIGHT shoulder nodule TECHNIQUE: Ultrasound soft tissue FINDINGS: Ultrasound RIGHT shoulder in the area of concern. In the area of concern there is a anechoi c cystic appearing lesion measuring approximately 1.3 x 1.1 x 0.7 CM. This is near the AC joint and m ay represent a synovial or degenerative cyst. This has a nonaggressive appearance but nonspecific. No definite connection to the joint as visualized. No other specific findings. US/US soft tissue/extremity [id number] IMPRESSION: Anechoic cystic appearing lesion measuring approximately 1.3 x 1.1 x 0.7 CM. This is near the AC joint and may represent a synovial or degenerativ e cyst but nonspecific. Shoulder can be further evaluated with MRI if continued concern.
== END 2022-05-17 23:59 | disposition home or self-care (01) ==
LOC: RAD 10:01 → ONCMED 05-18 07:03
PROVIDERS: PCP Emergency Medicine Emergency Medical Services; Visit Provider Internal Medicine Hematology & Oncology
DX: C49.A0 Gastrointestinal stromal tumor, unspecified site (principal); N13.8 Other obstructive and reflux uropathy; N40.1 Benign prostatic hyperplasia with lower urinary tract symptoms
CPT/HCPCS: 76882; 99214

== ENCOUNTER 2022-06-05 09:17 | Oncology outpatient (recurring) (ONCR) | payer OTHER, SELFPAY ==
--- NOTE | 2022-05-24 08:40 | US_ITS ---
WS: [id number] Complete ABDOMINAL ULTRASOUND HISTORY: Follow-up GIST. COMPARISON: Ultrasound 06/22/2021, CT abdomen and pelvis 02/17/2022 Liver: 12.7 cm in length. Limited evaluation of the liver due to patient's body habitus. The liver is coarse. The metastatic lesions previously described on 02/17/2022 are not apparent by ultrasound. Portal Vein: Normal hepatopetal flow with monophasic waveform. Gallbladder: Partially contracted. No stones or wall thickening. Poorly visualized. Gallbladder wall thickness: 0.2 cm. Pancreas: Not visualized. CBD: 0.5 cm. Right kidney: 11.7 cm x 6.7 cm x 5.9 cm. Normal size kidney. Exophytic cyst from the lower pole jovani ures 3.0 x 2.3 x 2.5 cm. No hydronephrosis. Left kidney: 12.6 cm x 4.5 cm x 6.3 cm. No mass, cortical thickening or hydronephrosis. Spleen: Normal size and echogenicity. Aorta and IVC are not well visualized. Poorly visualized soft tissue mass in the LEFT upper quadrant. This is incompletely visualized. Patie nt has a known gist tumor. The margins are not well identified by ultrasound. Mass is identified jovani uring at least 4.5 x 4.1 x 4.3 cm. US/US abdomen complete* [id number] IMPRESSION: 1. Previously described metastatic lesions in the liver are not identified by ultrasound. 2. Incomplete visualization of the known GIST tumor in the LEFT upper abdomen. Margins and exact extent cannot be determined by ultrasound. Hepatic metastati c lesions in the LEFT upper quadrant tumor would be much better visualized by C T. 3. RIGHT renal cyst. 4. Poor visualization of the pancreas.
[2022-06-05 09:53] LABS: Basophils % 0.3 %; Eosinophils # 0.2 10^3/uL (0.0-0.8); Eosinophils % 2.2 %; Hematocrit 43.6 % (42.0-52.0); Hemoglobin 14.2 g/dL (11.7-16.6); Lymphocytes # 2.2 10^3/uL (0.8-4.8); Lymphocytes % 22.3 %; Mean Corpuscular HGB Conc 32.6 g/dL (30.0-36.0); Mean Corpuscular Hemoglobin 30.9 pg (28.0-34.0); Mean Corpuscular Volume 94.8 fl (80-94); Mean Platelet Volume 9.6 fL (7.4-10.4); Monocytes # 0.9 10^3/uL (0.2-0.9); Monocytes % 8.8 %; Neutrophils # 6.37 10^3/uL (1.8-7.7); Neutrophils % 65.9 %; Nucleated Red Blood Cells % 0 %; Platelet Count 230 10^3/cmm (130-400); Red Cell Distribution Width 13.5 % (12.1-15.1); White Blood Count 9.7 10^3/uL (4.0-10.0)
[2022-06-05 10:11] LABS: Alanine Aminotransferase 10 U/L (0-41); Albumin Level 3.7 g/dL (3.5-5.2); Alkaline Phosphatase 87 U/L (40-130); Aspartate Amino Transferase 13 U/L (0-40); Blood Urea Nitrogen 18 mg/dL (8-23); Calcium 8.7 mg/dL (8.5-10.5); Carbon Dioxide 25 mmol/L (22-29); Chloride 104 mmol/L (98-107); Globulin 2.8 g/dL (1.3-4.6); Glucose 124 mg/dL (65-115); Osmolality Calculated 291 mOsm/kg (285-295); Sodium 139 mmol/L (136-145); Total Bilirubin 0.6 mg/dL (0.15-1.2); Total Protein 6.5 g/dL (6.6-8.7)
[2022-06-05 10:13] LABS: Anion Gap 14.2 (5-19); Potassium 4.2 mmol/L (3.5-5.1)
== END 2022-06-16 23:59 | disposition home or self-care (01) ==
PROVIDERS: PCP Emergency Medicine Emergency Medical Services; Visit Provider Internal Medicine Hematology & Oncology
DX: C49.A0 Gastrointestinal stromal tumor, unspecified site (principal); Z87.891 Personal history of nicotine dependence
CPT/HCPCS: 76700; 80053; 85025; 99214

== ENCOUNTER 2022-06-27 12:15 | Outpatient (CLI) | payer OTHER, SELFPAY ==
[2022-06-27] MEDS: iohexol 350 mg/mL 100 mL Btl IV (13:46)
--- NOTE | 2022-06-27 14:00 | CTR_ITS ---
PROCEDURE INFORMATION: Exam: CT Abdomen And Pelvis With Contrast Exam date and time: 06/27/2022 1:40 PM Age: 76 years old Clinical indication: Condition or disease; Cancer; Other: Gist; Additional info: Follow up, to be completed just prior to next onc visit TECHNIQUE: Imaging protocol: Computed tomography of the abdomen and pelvis with contrast. Radiation optimization: All CT scans at this facility use at least one of these dose optimization techniques: automated exposure control; mA and/or kV adjustment per patient size (includes targeted exams where dose is matched to clinical indication); or iterative reconstruction. Contrast material: OMNI 350; Contrast volume: 95 ml; Contrast route: INTRAVENOUS (IV); COMPARISON: CT abdomen pelvis w con* [id number] 02/17/2022 1:24 PM RADIATION DOSE METRICS: Total DLP (mGy-cm): 1339.08 FINDINGS: Liver: Right hepatic lobe superior aspect 2.6 cm metastatic foci again seen similar to prior exam. Previously noted hypoechoic nodules along the surface of the right and left hepatic lobe are somewhat visualized as well. A previously described 1.2 cm right hepatic lobe lesion posterior to the gallbladder is not seen with certainty. Gallbladder and bile ducts: Normal. No calcified stones. No ductal dilation. Pancreas: Normal. No ductal dilation. Spleen: Normal. No splenomegaly. Adrenal glands: Normal. No mass. Kidneys and ureters: Right kidney cyst, negative for follow up. Stomach and bowel: Unremarkable. No obstruction. No mucosal thickening. Appendix: No evidence of appendicitis. Intraperitoneal space: Left upper abdominal 7.5 x 10.2 x 10.7 cm mass, somewhat similar to prior exam, likely reflecting patient's known malignancy. Some central necrosis is suspected in center of this given some air and fluid density. Vasculature: Unremarkable. No abdominal aortic aneurysm. Lymph nodes: Edematous mesentery in the left upper abdomen with some subcentimeter prominent lymph nodes similar to prior exam may reflect some localized metastatic disease. Urinary bladder: Unremarkable as visualized. Reproductive: Unremarkable as visualized. Bones/joints: Unremarkable. No acute fracture. Soft tissues: Small right inguinal hernia containing omentum without bowel. CT/CT abdomen pelvis w con* [id number] IMPRESSION: 1. Left upper abdominal 7.5 x 10.2 x 10.7 cm mass, somewhat similar to prior exam, likely reflecting patient's known malignancy. Some central necrosis is suspected in center of this given some air and fluid density. 2. Edematous mesentery in the left upper abdomen with some subcentimeter prominent lymph nodes similar to prior exam may reflect some localized metastatic disease. 3. Right kidney cyst, negative for follow up. 4. Small right inguinal hernia containing omentum without bowel. 5. Right hepatic lobe superior aspect 2.6 cm metastatic foci again seen similar to prior exam. Previously noted hypoechoic nodules along the surface of the right and left hepatic lobe are somewhat visualized as well. A previously described 1.2 cm right hepatic lobe lesion posterior to the gallbladder is not seen with certainty. COMMENTS: Consistent with the [employer]'s Incidental Findings Committee white paper (J Am Sharla Radiol 2018): Any incidental renal lesion less than 1 cm or classified as too small to characterize, or any incidental cystic renal lesion characterized as simple-appearing, is likely benign. No follow-up imaging is recommended for these lesions per consensus recommendations based on imaging criteria.
== END 2022-06-27 12:16 | disposition home or self-care (01) ==
PROVIDERS: PCP Emergency Medicine Emergency Medical Services; Visit Provider Internal Medicine Hematology & Oncology
DX: C49.A0 Gastrointestinal stromal tumor, unspecified site (principal); N28.1 Cyst of kidney, acquired; K40.90 Unilateral inguinal hernia, without obstruction or gangrene, not specified as recurrent; C78.7 Secondary malignant neoplasm of liver and intrahepatic bile duct
CPT/HCPCS: 74177

== ENCOUNTER 2022-06-29 11:53 | Outpatient (CLI) | payer OTHER, SELFPAY | END 2022-06-29 11:54 | disposition home or self-care (01) | PROVIDERS: PCP Emergency Medicine Emergency Medical Services; Visit Provider Urology | DX: R97.20 Elevated prostate specific antigen [PSA] (principal); N40.1 Benign prostatic hyperplasia with lower urinary tract symptoms; N13.8 Other obstructive and reflux uropathy; R35.1 Nocturia | CPT/HCPCS: 36415; 51741; 51798; 81003; 84153; 99213 ==

== ENCOUNTER 2022-07-13 13:33 | Oncology outpatient (recurring) (ONCR) | payer OTHER, SELFPAY ==
[2022-07-13 14:05] LABS: Basophils # 0.1 10^3/uL (0.0-0.1); Basophils % 0.7 %; Eosinophils # 0.2 10^3/uL (0.0-0.8); Eosinophils % 2.9 %; Hematocrit 41.5 % (42.0-52.0); Hemoglobin 13.4 g/dL (11.7-16.6); Lymphocytes # 2.6 10^3/uL (0.8-4.8); Lymphocytes % 34.2 %; Mean Corpuscular HGB Conc 32.3 g/dL (30.0-36.0); Mean Corpuscular Hemoglobin 30.7 pg (28.0-34.0); Mean Corpuscular Volume 95.2 fl (80-94); Mean Platelet Volume 9.7 fL (7.4-10.4); Monocytes # 0.7 10^3/uL (0.2-0.9); Monocytes % 9.3 %; Neutrophils # 3.95 10^3/uL (1.8-7.7); Neutrophils % 52.4 %; Nucleated Red Blood Cells % 0 %; Platelet Count 214 10^3/cmm (130-400); Red Blood Count 4.36 10^6/uL (4.1-5.3); Red Cell Distribution Width 13.9 % (12.1-15.1); White Blood Count 7.5 10^3/uL (4.0-10.0)
[2022-07-13 14:32] LABS: Alanine Aminotransferase 11 U/L (0-41); Albumin Level 3.6 g/dL (3.5-5.2); Alkaline Phosphatase 85 U/L (40-130); Aspartate Amino Transferase 12 U/L (0-40); Blood Urea Nitrogen 13 mg/dL (8-23); Calcium 8.7 mg/dL (8.5-10.5); Carbon Dioxide 27 mmol/L (22-29); Chloride 101 mmol/L (98-107); Globulin 2.5 g/dL (1.3-4.6); Glucose 90 mg/dL (65-115); Osmolality Calculated 282 mOsm/kg (285-295); Sodium 136 mmol/L (136-145); Total Bilirubin 0.5 mg/dL (0.15-1.2); Total Protein 6.1 g/dL (6.6-8.7)
== END 2022-07-17 23:59 | disposition home or self-care (01) ==
LOC: ONCMED 13:34
PROVIDERS: PCP Emergency Medicine Emergency Medical Services; Visit Provider Internal Medicine Hematology & Oncology
DX: C49.A3 Gastrointestinal stromal tumor of small intestine (principal); C78.7 Secondary malignant neoplasm of liver and intrahepatic bile duct; N40.0 Benign prostatic hyperplasia without lower urinary tract symptoms; R97.20 Elevated prostate specific antigen [PSA]; D18.09 Hemangioma of other sites; M48.061 Spinal stenosis, lumbar region without neurogenic claudication; Z87.891 Personal history of nicotine dependence; R21 Rash and other nonspecific skin eruption; Z79.899 Other long term (current) drug therapy
CPT/HCPCS: 36415; 80053; 85025; 99214

== ENCOUNTER 2022-12-24 14:24 | Emergency (ER) | payer OTHER, SELFPAY ==
[2022-12-24] VITALS (8 sets, daily range): BP systolic 77–120; BP diastolic 52–67; PULSE 83–117; RESP 14–24; TEMP 36.7–36.8; O2SAT 95–97
--- NOTE | 2022-12-24 15:06 | W.ED.GENADLT ---
HPI - General Adult General: Chief complaint: General Medical Stated complaint: possible dehydration Time Seen by Provider: 12/24/22 14:51 History of Present Illness: Patient presents to the ER with the at bedside. Patient complains of being probable dehydrated. Patient states when he stands his blood pressure falls from 1 22-70 and his heart rate has a dramatic increase. Patient is also having shortness of breath and dizziness when this happens. Patient has an extensive history of stomachmultiple abdominal surgeries and surgical problems. Patient has a gastrointestinal stromal tumor, patient currently has a abdominal drain is draining bile. Patient has had dehydration multiple times in the past requiring multiple bags of saline and or hospitalization MD complaint: Dehydration Onset (ago): day(s) Severity: moderate Relieving factors: other Associated symptoms: Deny chest pain, dyspnea, headache(s), nausea, rash, palpitations or vomiting Treatments prior to arrival: none Review of Systems General: Reports: 10 or more systems reviewed and unremarkable except in HPI and below Const: Denies: fever(s) or chills Eyes: Denies: change in vision ENMT: Denies: throat pain or odynophagia Card: Denies: chest pain or palpitations Resp: Denies: dyspnea, productive cough or non-productive cough GI: Reports: abdominal pain; Denies: nausea, vomiting or diarrhea : Denies: flank pain, difficulty urinating or dysuria Musc: Denies: neck pain or back pain Skin/Breast: Denies: rash or pruritus Neuro: Denies: headache(s), numbness in extremities or weakness in extremities Psych: Denies: anxiety or depression FOR[facility]LY [facility] ED PFSH: Medical History BPH w urinary obs/LUTS Elevated PSA GIST (gastrointestinal stromal tumor), malignant Surgical History History of foot surgery Hx of shoulder surgery Family History Mother , In 80s Cancer Father , Age 85 of unknown cause Brother , Age 50 Abdominal aneurysm of unknown cause Brother , Age 76 of unknown cause Social History Smoking and tobacco status: former smoker Alcohol intake: current Alcohol intake frequency: holidays/special occasions only Marital status: Current occupational status: retired Physical Exam Const: COMMON NORMALS: average body habitus, patient oriented x3, no limitations and alert HENMT: COMMON NORMALS: normocephalic, atraumatic, hearing grossly normal bilaterally, external ears normal, Normal external nose present and moist oral mucous membranes HEAD & SCALP: normocephalic and atraumatic NOSE: Normal external nose present EXTERNAL EAR: Yes external ears normal Neck/C-Spine: COMMON NORMALS: full ROM, no lymphadenopathy, supple, no meningeal signs, no JVD and Thyroid normal THYROID: Thyroid normal Chest: COMMONS NORMALS: normal inspection of the chest and normal palpation of entire chest wall Resp: COMMON NORMALS: normal respiratory effort, No retractions, No use of accessory muscles and clear to auscultation bilaterally AUSCULTATION: clear to auscultation bilaterally Cardio: COMMON NORMALS: no JVD, regular rate, regular rhythm, S1 normal heart sound present and S2 normal heart sound present RATE: regular rate RHYTHM: regular rhythm HEART SOUNDS: S1 normal heart sound present and S2 normal heart sound present GI: OTHER: Abdomen soft distended drain noted, dressing over periumbilical region clean dry and intact. Bowel sounds normal in all 4 quadrants. : COMMON NORMALS: Yes no CVA tenderness BLADDER/KIDNEY EXAM: Yes no CVA tenderness Back/Pelvis: COMMON NORMALS: no CVA tenderness Neuro: COMMON NORMALS: patient oriented x3, CN's II-XII intact bilaterally, moves all extremities, no focal motor deficits and no sensory deficits noted SENSORIUM/ORIENTATION: Yes alert MENINGEAL SIGNS: Yes no meningeal signs Course Vital Signs: Vital signs: Vital Signs Temperature 98.2 F 12/24/22 20:37 Pulse Rate 79 12/25/22 07:11 Respiratory Rate 16 12/25/22 06:29 Blood Pressure 120/73 12/25/22 07:11 Pulse Oximetry 93 12/25/22 06:29 Oxygen Delivery Me thod 12/25/22 06:29 [facility] - General Adult Medical Decision Making Patient presents to the ER with complaints of lightheaded dizziness and orthostatic hypotension. Patient says he is dehydrated and when he stands up his blood pressure drops over 40 points and heart rate raises over 40 points. Patient has been in the hospital multiple times for this. Patient has an extensive history of multiple abdominal surgeries with multiple complications and multiple drains secondary to gastrointestinal stromal tumor. Patient is usually seen at [place] for this. Patient currently on antibiotics and has a biliary type drain in place. Upon further physical exam and lab work it was shown that patient has a white count of 24,000, hemoglobin of 11.2, sodium of 124, potassium of 5.3, magnesium of 1.5, and a procalcitonin of 1.05. Patient was given 2 L of normal saline and 2 g of magnesium and still remained orthostatic. This patient was discussed with Dr. Mccoy who thought due to his extensive surgical history he should probably return back to [place]. [facility] was called and Dr. Wilson who is on-call for Dr. Murcia was consulted and discussed the patient in depth. Dr. Wilson excepted the patient for Dr. Albarado and patient will be transferred up to [place] for further care. Differential Diagnosis Dehydration, tachycardia, nausea vomiting diarrhea, Lab Data 12/24/22 15:35 12/24/22 15:35 Laboratory Results WBC 14.0 10^3/uL (4.0-10.0) H 12/25/22 06:18 RBC 3.60 10^6/uL (4.1-5.3) L 12/25/22 06:18 Hgb 10.2 g/dL (11.7-16.6) L 12/25/22 06:18 Hct 32.9 % (42.0-52.0) L 12/25/22 06:18 MCV 91.4 fl (80-94) 12/25/22 06:18 MCH 28.3 pg (28.0-34.0) 12/25/22 06:18 MCHC 31.0 g/dL (30.0-36.0) 12/25/22 06:18 RDW 16.0 % (12.1-15.1) H 12/25/22 06:18 Plt Count 398 10^3/cmm (130-400) 12/25/22 06:18 MPV 9.3 fL (7.4-10.4) 12/25/22 06:18 Neut % (Auto) 61.0 % 12/25/22 06:18 Lymph % (Auto) 21.5 % 12/25/22 06:18 Refugio % (Auto) 13.4 % 12/25/22 06:18 Eos % (Auto) 2.6 % 12/25/22 06:18 Baso % (Auto) 0.5 % 12/25/22 06:18 Neut # (Auto) 8.55 10^3/uL (1.8-7.7) H 12/25/22 06:18 Lymph # (Auto) 3.0 10^3/uL (0.8-4.8) 12/25/22 06:18 Refugio # (Auto) 1.9 10^3/uL (0.2-0.9) H 12/25/22 06:18 Eos # (Auto) 0.4 10^3/uL (0.0-0.8) 12/25/22 06:18 Baso # (Auto) 0.1 10^3/uL (0.0-0.1) 12/25/22 06:18 Nucleated RBC % (auto) 0 % 12/25/22 06:18 Nucleated RBCs # 0.0 /100WBC 12/25/22 06:18 Sodium 132 mmol/L (136-145) L 12/25/22 06:18 Potassium 4.1 mmol/L (3.5-5.1) 12/25/22 06:18 Chloride 100 mmol/L (98-107) 12/25/22 06:18 Carbon Dioxide 22 mmol/L (22-29) 12/25/22 06:18 Anion Gap 14.1 (5-19) 12/25/22 06:18 BUN 15 mg/dL (8-23) 12/25/22 06:18 Creatinine 0.8 mg/dL (0.7-1.2) 12/25/22 06:18 GFR Calculation Not Reportable 12/25/22 06:18 Glucose 124 mg/dL (65-115) H 12/25/22 06:18 Calculated Osmolality 276 mOsm/kg (285-295) L 12/25/22 06:18 Lactic Acid 2.0 mmol/L (0.5-2.2) 12/24/22 15:35 Calcium 8.6 mg/dL (8.5-10.5) 12/25/22 06:18 Magnesium 2.0 mg/dL (1.7-2.3) 12/25/22 06:18 Total Bilirubin 0.9 mg/dL (0.15-1.2) 12/25/22 06:18 AST 30 U/L (0-40) 12/25/22 06:18 ALT 37 U/L (0-41) 12/25/22 06:18 Alkaline Phosphatase 278 U/L (40-130) H 12/25/22 06:18 Total Protein 6.6 g/dL (6.6-8.7) 12/25/22 06:18 Albumin 2.8 g/dL (3.5-5.2) L 12/25/22 06:18 Globulin 3.8 g/dL (1.3-4.6) 12/25/22 06:18 Procalcitonin 1.05 ng/mL (0-0.5) H 12/24/22 15:35 Urine Color Dark yellow (Yellow) 12/24/22 15:45 Urine Appearance Clear (CLEAR) 12/24/22 15:45 Urine pH 5 (5-7) 12/24/22 15:45 Ur Specific Stanton 1.010 (1.005-1.030) 12/24/22 15:45 Urine Protein Neg (Negative) 12/24/22 15:45 Urine Glucose (UA) Norm (Normal) 12/24/22 15:45 Urine Ketones Negative (Negative) 12/24/22 15:45 Urine Blood Neg (Negative) 12/24/22 15:45 Urine Nitrate Negative (Negative) 12/24/22 15:45 Urine Bilirubin Neg (Negative) 12/24/22 15:45 Urine Urobilinogen Norm mg/dL (Negative) 12/24/22 15:45 Ur Leukocyte Esterase Negative (Negative) 12/24/22 15:45 Discharge Plan Discharge Patient Disposition: Xfer Short-Term Hosp Clinical Impression: Orthostatic hypotension, Acute hyponatremia, Elevated procalcitonin, Gastrointestinal stromal tumor (GIST) Leukocytosis Qualifiers: Leukocytosis type: unspecified Qualified Code(s): D72.829 - Elevated white blood cell count, unspecified Condition: Stable Discharge Orders: Transfer Out of Facility (Order); Ordered 12/24/22 Ordered By: Jonnie Carson Referrals: Jose Eduardo Ken DO [Primary Care Provider] - Coding Level of Care Code ED Underwater Welder for Mary Villafana
[2022-12-24] MEDS: sodium chloride 0.9% 1,000 ML 999 ML IV ×2 (15:32→16:19)
[2022-12-24 15:50] LABS: Basophils # 0.1 10^3/uL (0.0-0.1); Basophils % 0.4 %; Eosinophils # 0.1 10^3/uL (0.0-0.8); Eosinophils % 0.2 %; Hematocrit 37.2 % (42.0-52.0); Hemoglobin 11.2 g/dL (11.7-16.6); Lymphocytes # 2.2 10^3/uL (0.8-4.8); Lymphocytes % 8.8 %; Mean Corpuscular HGB Conc 30.1 g/dL (30.0-36.0); Mean Corpuscular Hemoglobin 28.2 pg (28.0-34.0); Mean Corpuscular Volume 93.7 fl (80-94); Mean Platelet Volume 9.2 fL (7.4-10.4); Monocytes # 1.7 10^3/uL (0.2-0.9); Neutrophils # 20.25 10^3/uL (1.8-7.7); Neutrophils % 82.5 %; Nucleated Red Blood Cells % 0 %; Platelet Count 457 10^3/cmm (130-400); Red Blood Count 3.97 10^6/uL (4.1-5.3); Red Cell Distribution Width 16.1 % (12.1-15.1); White Blood Count 24.6 10^3/uL (4.0-10.0)
[2022-12-24 16:11] LABS: Alanine Aminotransferase 44 U/L (0-41); Albumin Level 3.1 g/dL (3.5-5.2); Alkaline Phosphatase 353 U/L (40-130); Anion Gap 18.3 (5-19); Aspartate Amino Transferase 42 U/L (0-40); Blood Urea Nitrogen 18 mg/dL (8-23); Calcium 8.8 mg/dL (8.5-10.5); Carbon Dioxide 18 mmol/L (22-29); Chloride 93 mmol/L (98-107); Creatinine Clr Calc Pharmacy 69.7786; Globulin 4.1 g/dL (1.3-4.6); Glucose 127 mg/dL (65-115); Magnesium 1.5 mg/dL (1.7-2.3); Osmolality Calculated 261 mOsm/kg (285-295); Potassium 5.3 mmol/L (3.5-5.1); Sodium 124 mmol/L (136-145); Total Protein 7.2 g/dL (6.6-8.7)
[2022-12-24 16:18] LABS: Procalcitonin 1.05 ng/mL (0-0.5)
[2022-12-24 16:20] LABS: Add Urine Microscopic? NO; Charge for UA Resulting for Rev
[2022-12-24 16:26] LABS: Bilirubin Urine Neg (Negative); Blood Urine Neg (Negative); Glucose Urine UA Norm (Normal); Ketones Urine Negative (Negative); Leukocyte Esterase Urine Negative (Negative); Nitrate Urine Negative (Negative); Protein Urine Neg (Negative); Urine Appearance Clear (CLEAR); Urine Color Dark Yellow (Yellow); Urobilinogen Urine Norm (Negative); pH Urine 5 (5-7)
[2022-12-24] MEDS: magnesium sulfate premix 2 GM/50 ML PIGGYBACK IV (17:53)
[2022-12-25 03:36] VITALS: BP 106/70; PULSE 109; O2SAT 96
[2022-12-25 05:30] VITALS: BP 105/55; PULSE 75; O2SAT 95
[2022-12-25] MEDS: sodium chloride 0.9% 1,000 ML 150 ML IV (06:22)
[2022-12-25] MEDS: piperacillin-tazobactam 3.375 GM in sodium chloride 0.9% (plus) 50 ML IV (06:22)
[2022-12-25 06:28] LABS: Basophils # 0.1 10^3/uL (0.0-0.1); Basophils % 0.5 %; Eosinophils # 0.4 10^3/uL (0.0-0.8); Eosinophils % 2.6 %; Hematocrit 32.9 % (42.0-52.0); Hemoglobin 10.2 g/dL (11.7-16.6); Lymphocytes % 21.5 %; Mean Corpuscular Hemoglobin 28.3 pg (28.0-34.0); Mean Corpuscular Volume 91.4 fl (80-94); Mean Platelet Volume 9.3 fL (7.4-10.4); Monocytes # 1.9 10^3/uL (0.2-0.9); Monocytes % 13.4 %; Neutrophils # 8.55 10^3/uL (1.8-7.7); Nucleated Red Blood Cells % 0 %; Platelet Count 398 10^3/cmm (130-400)
[2022-12-25 06:29] VITALS: BP 110/63; PULSE 73; RESP 16; O2SAT 93
[2022-12-25 06:46] LABS: Alanine Aminotransferase 37 U/L (0-41); Albumin Level 2.8 g/dL (3.5-5.2); Alkaline Phosphatase 278 U/L (40-130); Anion Gap 14.1 (5-19); Aspartate Amino Transferase 30 U/L (0-40); Blood Urea Nitrogen 15 mg/dL (8-23); Calcium 8.6 mg/dL (8.5-10.5); Carbon Dioxide 22 mmol/L (22-29); Chloride 100 mmol/L (98-107); Creatinine Clr Calc Pharmacy 87.2232; Globulin 3.8 g/dL (1.3-4.6); Glucose 124 mg/dL (65-115); Osmolality Calculated 276 mOsm/kg (285-295); Potassium 4.1 mmol/L (3.5-5.1); Sodium 132 mmol/L (136-145); Total Bilirubin 0.9 mg/dL (0.15-1.2); Total Protein 6.6 g/dL (6.6-8.7)
[2022-12-25 07:11] VITALS: BP 111/67; BP 120/73; BP 91/53; PULSE 100; PULSE 79; PULSE 84
== END 2022-12-25 07:43 | disposition short-term general hospital (02) ==
PROVIDERS: Family Medicine; Emergency Provider Emergency Medicine; PCP Emergency Medicine Emergency Medical Services
DX: I95.1 Orthostatic hypotension (principal); E87.1 Hypo-osmolality and hyponatremia; C49.A0 Gastrointestinal stromal tumor, unspecified site; D72.829 Elevated white blood cell count, unspecified
CPT/HCPCS: 36415; 80053; 81003; 83605; 83735; 84145; 85025; 87040; 96361; 96365; 96367; 99285; J2543; J3475; J7030

== ENCOUNTER → 2023-06-20 13:03 | Outpatient (BNVA) | payer OTHER, SELFPAY | PROVIDERS: PCP Emergency Medicine Emergency Medical Services; Visit Provider Thoracic Surgery (Cardiothoracic Vascular Surgery) | DX: I96 Gangrene, not elsewhere classified (principal); T81.31XD Disruption of external operation (surgical) wound, not elsewhere classified, subsequent encounter; Y83.8 Other surgical procedures as the cause of abnormal reaction of the patient, or of later complication, without mention of misadventure at the time of the procedure | CPT/HCPCS: 97597; 99213; A6197; A6212 ==

== ENCOUNTER → 2023-06-27 14:47 | Outpatient (BNVA) | payer OTHER, SELFPAY | PROVIDERS: PCP Emergency Medicine Emergency Medical Services; Visit Provider Thoracic Surgery (Cardiothoracic Vascular Surgery) | DX: T81.31XD Disruption of external operation (surgical) wound, not elsewhere classified, subsequent encounter (principal); Y83.8 Other surgical procedures as the cause of abnormal reaction of the patient, or of later complication, without mention of misadventure at the time of the procedure | CPT/HCPCS: 97597; A6021; A6219 ==

== ENCOUNTER → 2023-07-04 13:46 | Outpatient (BNVA) | payer OTHER, SELFPAY | PROVIDERS: PCP Emergency Medicine Emergency Medical Services; Visit Provider Thoracic Surgery (Cardiothoracic Vascular Surgery) | DX: T81.31XD Disruption of external operation (surgical) wound, not elsewhere classified, subsequent encounter (principal); Y83.8 Other surgical procedures as the cause of abnormal reaction of the patient, or of later complication, without mention of misadventure at the time of the procedure | CPT/HCPCS: 97597; A6248 ==

== ENCOUNTER → 2023-07-12 13:37 | Outpatient (BNVA) | payer OTHER, SELFPAY | PROVIDERS: PCP Emergency Medicine Emergency Medical Services; Visit Provider Nurse Practitioner Family | DX: T81.31XD Disruption of external operation (surgical) wound, not elsewhere classified, subsequent encounter (principal); Y83.8 Other surgical procedures as the cause of abnormal reaction of the patient, or of later complication, without mention of misadventure at the time of the procedure | CPT/HCPCS: 97597; A6021; A6212 ==

== ENCOUNTER → 2023-07-18 14:25 | Outpatient (BNVA) | payer OTHER, SELFPAY | PROVIDERS: PCP Emergency Medicine Emergency Medical Services; Visit Provider Thoracic Surgery (Cardiothoracic Vascular Surgery) | DX: T81.31XD Disruption of external operation (surgical) wound, not elsewhere classified, subsequent encounter (principal); Y83.8 Other surgical procedures as the cause of abnormal reaction of the patient, or of later complication, without mention of misadventure at the time of the procedure | CPT/HCPCS: 97597; A6021; A6219 ==

== ENCOUNTER → 2023-07-25 13:59 | Outpatient (BNVA) | payer OTHER, SELFPAY | PROVIDERS: PCP Emergency Medicine Emergency Medical Services; Visit Provider Thoracic Surgery (Cardiothoracic Vascular Surgery) | DX: I96 Gangrene, not elsewhere classified (principal); T81.31XD Disruption of external operation (surgical) wound, not elsewhere classified, subsequent encounter; Y83.8 Other surgical procedures as the cause of abnormal reaction of the patient, or of later complication, without mention of misadventure at the time of the procedure | CPT/HCPCS: 97597; A6021; A6219 ==

== ENCOUNTER → 2023-07-30 15:43 | Outpatient (BNVA) | payer OTHER, SELFPAY | PROVIDERS: PCP Emergency Medicine Emergency Medical Services; Visit Provider Thoracic Surgery (Cardiothoracic Vascular Surgery) | DX: T81.31XD Disruption of external operation (surgical) wound, not elsewhere classified, subsequent encounter (principal); Y83.8 Other surgical procedures as the cause of abnormal reaction of the patient, or of later complication, without mention of misadventure at the time of the procedure | CPT/HCPCS: 97597; 97598; A6220 ==

== ENCOUNTER → 2023-08-08 13:53 | Outpatient (BNVA) | payer OTHER, SELFPAY | PROVIDERS: PCP Emergency Medicine Emergency Medical Services; Visit Provider Thoracic Surgery (Cardiothoracic Vascular Surgery) | DX: T81.31XD Disruption of external operation (surgical) wound, not elsewhere classified, subsequent encounter (principal); Y83.8 Other surgical procedures as the cause of abnormal reaction of the patient, or of later complication, without mention of misadventure at the time of the procedure | CPT/HCPCS: 97597; 97598; A6210; A6220 ==

== ENCOUNTER → 2023-08-16 13:04 | Outpatient (BNVA) | payer OTHER, SELFPAY | PROVIDERS: PCP Emergency Medicine Emergency Medical Services; Visit Provider Nurse Practitioner Family | DX: T81.31XD Disruption of external operation (surgical) wound, not elsewhere classified, subsequent encounter (principal); Y83.8 Other surgical procedures as the cause of abnormal reaction of the patient, or of later complication, without mention of misadventure at the time of the procedure | CPT/HCPCS: 99212; A6210 ==

== ENCOUNTER → 2023-08-24 13:03 | Outpatient (BNVA) | payer OTHER, SELFPAY | PROVIDERS: PCP Emergency Medicine Emergency Medical Services; Visit Provider Thoracic Surgery (Cardiothoracic Vascular Surgery) | DX: T81.31XD Disruption of external operation (surgical) wound, not elsewhere classified, subsequent encounter (principal); Y83.8 Other surgical procedures as the cause of abnormal reaction of the patient, or of later complication, without mention of misadventure at the time of the procedure; I96 Gangrene, not elsewhere classified | CPT/HCPCS: 97597; 97598; A6220 ==

== ENCOUNTER → 2023-08-31 10:39 | Outpatient (BNVA) | payer OTHER, SELFPAY | PROVIDERS: PCP Emergency Medicine Emergency Medical Services; Visit Provider Thoracic Surgery (Cardiothoracic Vascular Surgery) | DX: I96 Gangrene, not elsewhere classified (principal); T81.31XD Disruption of external operation (surgical) wound, not elsewhere classified, subsequent encounter; Y83.8 Other surgical procedures as the cause of abnormal reaction of the patient, or of later complication, without mention of misadventure at the time of the procedure | CPT/HCPCS: 97597; 97598 ==

== ENCOUNTER → 2023-09-07 09:47 | Outpatient (BNVA) | payer OTHER, SELFPAY | PROVIDERS: PCP Emergency Medicine Emergency Medical Services; Visit Provider Thoracic Surgery (Cardiothoracic Vascular Surgery) | DX: I96 Gangrene, not elsewhere classified (principal); T81.31XD Disruption of external operation (surgical) wound, not elsewhere classified, subsequent encounter; Y83.8 Other surgical procedures as the cause of abnormal reaction of the patient, or of later complication, without mention of misadventure at the time of the procedure | CPT/HCPCS: 97597; 97598; A6220 ==

== ENCOUNTER → 2023-09-21 09:58 | Outpatient (BNVA) | payer OTHER, SELFPAY | PROVIDERS: PCP Emergency Medicine Emergency Medical Services; Visit Provider Thoracic Surgery (Cardiothoracic Vascular Surgery) | DX: T81.31XD Disruption of external operation (surgical) wound, not elsewhere classified, subsequent encounter (principal); Y83.8 Other surgical procedures as the cause of abnormal reaction of the patient, or of later complication, without mention of misadventure at the time of the procedure | CPT/HCPCS: 11042; 11045; A6021 ==

== ENCOUNTER → 2023-09-28 08:53 | Outpatient (BNVA) | payer OTHER, SELFPAY | PROVIDERS: PCP Emergency Medicine Emergency Medical Services; Visit Provider Thoracic Surgery (Cardiothoracic Vascular Surgery) | DX: I96 Gangrene, not elsewhere classified (principal); T81.31XD Disruption of external operation (surgical) wound, not elsewhere classified, subsequent encounter; Y83.8 Other surgical procedures as the cause of abnormal reaction of the patient, or of later complication, without mention of misadventure at the time of the procedure | CPT/HCPCS: 11042; 11045; A6021; A6220 ==

== ENCOUNTER → 2023-10-05 09:03 | Outpatient (BNVA) | payer OTHER, SELFPAY | PROVIDERS: PCP Emergency Medicine Emergency Medical Services; Visit Provider Thoracic Surgery (Cardiothoracic Vascular Surgery) | DX: T81.31XD Disruption of external operation (surgical) wound, not elsewhere classified, subsequent encounter (principal); Y83.8 Other surgical procedures as the cause of abnormal reaction of the patient, or of later complication, without mention of misadventure at the time of the procedure | CPT/HCPCS: 11042; 11045; A6021 ==

== ENCOUNTER → 2023-10-12 09:05 | Outpatient (BNVA) | payer OTHER, SELFPAY | PROVIDERS: PCP Emergency Medicine Emergency Medical Services; Visit Provider Thoracic Surgery (Cardiothoracic Vascular Surgery) | DX: I96 Gangrene, not elsewhere classified (principal); T81.31XD Disruption of external operation (surgical) wound, not elsewhere classified, subsequent encounter; Y83.8 Other surgical procedures as the cause of abnormal reaction of the patient, or of later complication, without mention of misadventure at the time of the procedure | CPT/HCPCS: 11042; A6248 ==

== ENCOUNTER → 2023-10-19 13:00 | Outpatient (BNVA) | payer OTHER, SELFPAY | PROVIDERS: PCP Emergency Medicine Emergency Medical Services; Visit Provider Thoracic Surgery (Cardiothoracic Vascular Surgery) | DX: I96 Gangrene, not elsewhere classified (principal); T81.31XD Disruption of external operation (surgical) wound, not elsewhere classified, subsequent encounter; Y83.8 Other surgical procedures as the cause of abnormal reaction of the patient, or of later complication, without mention of misadventure at the time of the procedure | CPT/HCPCS: 11042 ==

== ENCOUNTER → 2023-10-25 11:03 | Outpatient (BNVA) | payer OTHER, SELFPAY | PROVIDERS: PCP Emergency Medicine Emergency Medical Services; Visit Provider Thoracic Surgery (Cardiothoracic Vascular Surgery) | DX: I96 Gangrene, not elsewhere classified (principal); T81.31XD Disruption of external operation (surgical) wound, not elsewhere classified, subsequent encounter; Y83.8 Other surgical procedures as the cause of abnormal reaction of the patient, or of later complication, without mention of misadventure at the time of the procedure | CPT/HCPCS: 97597 ==

== ENCOUNTER → 2023-11-08 10:13 | Outpatient (BNVA) | payer OTHER, SELFPAY | PROVIDERS: PCP Emergency Medicine Emergency Medical Services; Visit Provider Thoracic Surgery (Cardiothoracic Vascular Surgery) | DX: T81.31XD Disruption of external operation (surgical) wound, not elsewhere classified, subsequent encounter (principal); Y83.8 Other surgical procedures as the cause of abnormal reaction of the patient, or of later complication, without mention of misadventure at the time of the procedure | CPT/HCPCS: 15271; A6021; A6207; A6250; Q4205 ==

== ENCOUNTER → 2023-11-15 09:57 | Outpatient (BNVA) | payer OTHER, SELFPAY | PROVIDERS: PCP Emergency Medicine Emergency Medical Services; Visit Provider Thoracic Surgery (Cardiothoracic Vascular Surgery) | DX: T81.31XD Disruption of external operation (surgical) wound, not elsewhere classified, subsequent encounter (principal); Y83.8 Other surgical procedures as the cause of abnormal reaction of the patient, or of later complication, without mention of misadventure at the time of the procedure | CPT/HCPCS: 15271; A6021; A6206; A6250; Q4205 ==

== ENCOUNTER → 2023-11-22 12:59 | Outpatient (BNVA) | payer OTHER, SELFPAY | PROVIDERS: PCP Emergency Medicine Emergency Medical Services; Visit Provider Thoracic Surgery (Cardiothoracic Vascular Surgery) | DX: T81.31XD Disruption of external operation (surgical) wound, not elsewhere classified, subsequent encounter (principal); Y83.8 Other surgical procedures as the cause of abnormal reaction of the patient, or of later complication, without mention of misadventure at the time of the procedure | CPT/HCPCS: 15271; A6206; A6250; Q4205 ==

== ENCOUNTER → 2023-11-29 10:09 | Outpatient (BNVA) | payer OTHER, SELFPAY | PROVIDERS: PCP Emergency Medicine Emergency Medical Services; Visit Provider Thoracic Surgery (Cardiothoracic Vascular Surgery) | DX: I96 Gangrene, not elsewhere classified (principal); T81.31XD Disruption of external operation (surgical) wound, not elsewhere classified, subsequent encounter; Y83.8 Other surgical procedures as the cause of abnormal reaction of the patient, or of later complication, without mention of misadventure at the time of the procedure | CPT/HCPCS: 15271; A6206; A6250; Q4205 ==

== ENCOUNTER → 2023-12-06 10:45 | Outpatient (BNVA) | payer OTHER, SELFPAY | PROVIDERS: PCP Emergency Medicine Emergency Medical Services; Visit Provider Thoracic Surgery (Cardiothoracic Vascular Surgery) | DX: T81.31XD Disruption of external operation (surgical) wound, not elsewhere classified, subsequent encounter (principal); Y83.8 Other surgical procedures as the cause of abnormal reaction of the patient, or of later complication, without mention of misadventure at the time of the procedure | CPT/HCPCS: 15271; A6206; A6250; Q4205 ==

== ENCOUNTER → 2023-12-13 09:17 | Outpatient (BNVA) | payer OTHER, SELFPAY | PROVIDERS: PCP Emergency Medicine Emergency Medical Services; Visit Provider Thoracic Surgery (Cardiothoracic Vascular Surgery) | DX: T81.31XD Disruption of external operation (surgical) wound, not elsewhere classified, subsequent encounter (principal); Y83.8 Other surgical procedures as the cause of abnormal reaction of the patient, or of later complication, without mention of misadventure at the time of the procedure | CPT/HCPCS: 15271; A6206; A6250; Q4205 ==

== ENCOUNTER → 2023-12-20 10:09 | Outpatient (BNVA) | payer OTHER, SELFPAY | PROVIDERS: PCP Emergency Medicine Emergency Medical Services; Visit Provider Thoracic Surgery (Cardiothoracic Vascular Surgery) | DX: I96 Gangrene, not elsewhere classified (principal); T81.31XD Disruption of external operation (surgical) wound, not elsewhere classified, subsequent encounter; Y83.8 Other surgical procedures as the cause of abnormal reaction of the patient, or of later complication, without mention of misadventure at the time of the procedure | CPT/HCPCS: 15271; A6206; A6250 ==

== ENCOUNTER → 2023-12-27 10:42 | Outpatient (BNVA) | payer OTHER, SELFPAY | PROVIDERS: PCP Emergency Medicine Emergency Medical Services; Visit Provider Thoracic Surgery (Cardiothoracic Vascular Surgery) | DX: I96 Gangrene, not elsewhere classified (principal); T81.31XD Disruption of external operation (surgical) wound, not elsewhere classified, subsequent encounter; Y83.8 Other surgical procedures as the cause of abnormal reaction of the patient, or of later complication, without mention of misadventure at the time of the procedure | CPT/HCPCS: 15271; A6206; A6250; Q4205 ==

== ENCOUNTER → 2024-01-03 10:16 | Outpatient (BNVA) | payer OTHER, SELFPAY | PROVIDERS: PCP Emergency Medicine Emergency Medical Services; Visit Provider Thoracic Surgery (Cardiothoracic Vascular Surgery) | DX: I96 Gangrene, not elsewhere classified (principal); T81.31XD Disruption of external operation (surgical) wound, not elsewhere classified, subsequent encounter; Y83.8 Other surgical procedures as the cause of abnormal reaction of the patient, or of later complication, without mention of misadventure at the time of the procedure | CPT/HCPCS: 15271; A6206; A6250; Q4205 ==

== ENCOUNTER → 2024-01-10 10:38 | Outpatient (BNVA) | payer OTHER, SELFPAY | PROVIDERS: PCP Emergency Medicine Emergency Medical Services; Visit Provider Thoracic Surgery (Cardiothoracic Vascular Surgery) | DX: I96 Gangrene, not elsewhere classified (principal); T81.31XD Disruption of external operation (surgical) wound, not elsewhere classified, subsequent encounter; Y83.8 Other surgical procedures as the cause of abnormal reaction of the patient, or of later complication, without mention of misadventure at the time of the procedure | CPT/HCPCS: 97597 ==

== ENCOUNTER → 2024-01-17 09:28 | Outpatient (BNVA) | payer OTHER, SELFPAY | PROVIDERS: PCP Emergency Medicine Emergency Medical Services; Visit Provider Thoracic Surgery (Cardiothoracic Vascular Surgery) | DX: I96 Gangrene, not elsewhere classified (principal); T81.31XD Disruption of external operation (surgical) wound, not elsewhere classified, subsequent encounter; Y83.8 Other surgical procedures as the cause of abnormal reaction of the patient, or of later complication, without mention of misadventure at the time of the procedure | CPT/HCPCS: 15271; A6206; A6250; Q4196 ==

== ENCOUNTER → 2024-01-24 10:19 | Outpatient (BNVA) | payer OTHER, SELFPAY | PROVIDERS: PCP Emergency Medicine Emergency Medical Services; Visit Provider Thoracic Surgery (Cardiothoracic Vascular Surgery) | DX: I96 Gangrene, not elsewhere classified (principal); T81.31XD Disruption of external operation (surgical) wound, not elsewhere classified, subsequent encounter; Y83.8 Other surgical procedures as the cause of abnormal reaction of the patient, or of later complication, without mention of misadventure at the time of the procedure | CPT/HCPCS: 15271; A6206; A6250; Q4196 ==

== ENCOUNTER → 2024-01-31 10:00 | Outpatient (BNVA) | payer OTHER, SELFPAY | PROVIDERS: PCP Emergency Medicine Emergency Medical Services; Visit Provider Thoracic Surgery (Cardiothoracic Vascular Surgery) | DX: T81.31XD Disruption of external operation (surgical) wound, not elsewhere classified, subsequent encounter (principal); Y83.8 Other surgical procedures as the cause of abnormal reaction of the patient, or of later complication, without mention of misadventure at the time of the procedure | CPT/HCPCS: 15271; A6206; A6250; Q4196 ==

== ENCOUNTER → 2024-02-07 10:21 | Outpatient (BNVA) | payer OTHER, SELFPAY | PROVIDERS: PCP Emergency Medicine Emergency Medical Services; Visit Provider Thoracic Surgery (Cardiothoracic Vascular Surgery) | DX: I96 Gangrene, not elsewhere classified (principal); T81.31XD Disruption of external operation (surgical) wound, not elsewhere classified, subsequent encounter; Y83.8 Other surgical procedures as the cause of abnormal reaction of the patient, or of later complication, without mention of misadventure at the time of the procedure | CPT/HCPCS: 15271; Q4196 ==

== ENCOUNTER → 2024-02-14 09:38 | Outpatient (BNVA) | payer OTHER, SELFPAY | PROVIDERS: PCP Emergency Medicine Emergency Medical Services; Visit Provider Thoracic Surgery (Cardiothoracic Vascular Surgery) | DX: I96 Gangrene, not elsewhere classified (principal); T81.31XD Disruption of external operation (surgical) wound, not elsewhere classified, subsequent encounter; Y83.8 Other surgical procedures as the cause of abnormal reaction of the patient, or of later complication, without mention of misadventure at the time of the procedure | CPT/HCPCS: 15271; A6206; A6250; Q4196 ==

== ENCOUNTER → 2024-02-21 10:03 | Outpatient (BNVA) | payer OTHER, SELFPAY | PROVIDERS: PCP Emergency Medicine Emergency Medical Services; Visit Provider Thoracic Surgery (Cardiothoracic Vascular Surgery) | DX: I96 Gangrene, not elsewhere classified (principal); T81.31XD Disruption of external operation (surgical) wound, not elsewhere classified, subsequent encounter; Y83.8 Other surgical procedures as the cause of abnormal reaction of the patient, or of later complication, without mention of misadventure at the time of the procedure | CPT/HCPCS: 97597; A6206; A6250 ==

== ENCOUNTER → 2024-03-06 14:07 | Outpatient (BNVA) | payer OTHER, SELFPAY | PROVIDERS: PCP Emergency Medicine Emergency Medical Services; Visit Provider Thoracic Surgery (Cardiothoracic Vascular Surgery) | DX: I96 Gangrene, not elsewhere classified (principal); T81.31XD Disruption of external operation (surgical) wound, not elsewhere classified, subsequent encounter; Y83.8 Other surgical procedures as the cause of abnormal reaction of the patient, or of later complication, without mention of misadventure at the time of the procedure | CPT/HCPCS: 15271; A6206; A6250; Q4196 ==

== ENCOUNTER → 2024-03-13 09:59 | Outpatient (BNVA) | payer OTHER, SELFPAY | PROVIDERS: PCP Emergency Medicine Emergency Medical Services; Visit Provider Thoracic Surgery (Cardiothoracic Vascular Surgery) | DX: I96 Gangrene, not elsewhere classified (principal); T81.31XD Disruption of external operation (surgical) wound, not elsewhere classified, subsequent encounter; Y83.8 Other surgical procedures as the cause of abnormal reaction of the patient, or of later complication, without mention of misadventure at the time of the procedure | CPT/HCPCS: 15271; A6206; A6250 ==

== ENCOUNTER → 2024-03-27 09:53 | Outpatient (BNVA) | payer OTHER, SELFPAY | PROVIDERS: PCP Emergency Medicine Emergency Medical Services; Visit Provider Thoracic Surgery (Cardiothoracic Vascular Surgery) | DX: I96 Gangrene, not elsewhere classified (principal); T81.31XD Disruption of external operation (surgical) wound, not elsewhere classified, subsequent encounter; Y83.8 Other surgical procedures as the cause of abnormal reaction of the patient, or of later complication, without mention of misadventure at the time of the procedure | CPT/HCPCS: 15271; A6206 ==

== ENCOUNTER → 2024-04-03 09:58 | Outpatient (BNVA) | payer OTHER, SELFPAY | PROVIDERS: PCP Emergency Medicine Emergency Medical Services; Visit Provider Thoracic Surgery (Cardiothoracic Vascular Surgery) | DX: I96 Gangrene, not elsewhere classified (principal); T81.31XD Disruption of external operation (surgical) wound, not elsewhere classified, subsequent encounter; Y83.8 Other surgical procedures as the cause of abnormal reaction of the patient, or of later complication, without mention of misadventure at the time of the procedure | CPT/HCPCS: 15271; A6206 ==

== ENCOUNTER → 2024-04-10 09:55 | Outpatient (BNVA) | payer OTHER, SELFPAY | PROVIDERS: PCP Emergency Medicine Emergency Medical Services; Visit Provider Thoracic Surgery (Cardiothoracic Vascular Surgery) | DX: I96 Gangrene, not elsewhere classified (principal); T81.31XD Disruption of external operation (surgical) wound, not elsewhere classified, subsequent encounter; Y83.8 Other surgical procedures as the cause of abnormal reaction of the patient, or of later complication, without mention of misadventure at the time of the procedure | CPT/HCPCS: 15271; A6207 ==

== ENCOUNTER → 2024-04-17 09:53 | Outpatient (BNVA) | payer OTHER, SELFPAY | PROVIDERS: PCP Emergency Medicine Emergency Medical Services; Visit Provider Thoracic Surgery (Cardiothoracic Vascular Surgery) | DX: I96 Gangrene, not elsewhere classified (principal); T81.31XD Disruption of external operation (surgical) wound, not elsewhere classified, subsequent encounter; Y83.8 Other surgical procedures as the cause of abnormal reaction of the patient, or of later complication, without mention of misadventure at the time of the procedure | CPT/HCPCS: 97597 ==

== ENCOUNTER → 2024-04-24 09:52 | Outpatient (BNVA) | payer OTHER, SELFPAY | PROVIDERS: PCP Emergency Medicine Emergency Medical Services; Visit Provider Thoracic Surgery (Cardiothoracic Vascular Surgery) | DX: I96 Gangrene, not elsewhere classified (principal); T81.31XD Disruption of external operation (surgical) wound, not elsewhere classified, subsequent encounter; Y83.8 Other surgical procedures as the cause of abnormal reaction of the patient, or of later complication, without mention of misadventure at the time of the procedure | CPT/HCPCS: 97597 ==

== ENCOUNTER → 2024-05-01 09:52 | Outpatient (BNVA) | payer OTHER, SELFPAY | PROVIDERS: PCP Emergency Medicine Emergency Medical Services; Visit Provider Thoracic Surgery (Cardiothoracic Vascular Surgery) | DX: I96 Gangrene, not elsewhere classified (principal); T81.31XD Disruption of external operation (surgical) wound, not elsewhere classified, subsequent encounter; Y83.8 Other surgical procedures as the cause of abnormal reaction of the patient, or of later complication, without mention of misadventure at the time of the procedure | CPT/HCPCS: 97597 ==

== ENCOUNTER → 2024-05-08 09:52 | Outpatient (BNVA) | payer OTHER, SELFPAY | PROVIDERS: PCP Emergency Medicine Emergency Medical Services; Visit Provider Thoracic Surgery (Cardiothoracic Vascular Surgery) | DX: I96 Gangrene, not elsewhere classified (principal); T81.31XD Disruption of external operation (surgical) wound, not elsewhere classified, subsequent encounter; Y83.8 Other surgical procedures as the cause of abnormal reaction of the patient, or of later complication, without mention of misadventure at the time of the procedure | CPT/HCPCS: 97597 ==

== ENCOUNTER → 2024-05-15 09:53 | Outpatient (BNVA) | payer OTHER, SELFPAY | PROVIDERS: PCP Emergency Medicine Emergency Medical Services; Visit Provider Thoracic Surgery (Cardiothoracic Vascular Surgery) | DX: I96 Gangrene, not elsewhere classified (principal); T81.31XD Disruption of external operation (surgical) wound, not elsewhere classified, subsequent encounter; Y83.8 Other surgical procedures as the cause of abnormal reaction of the patient, or of later complication, without mention of misadventure at the time of the procedure | CPT/HCPCS: 97597 ==

== ENCOUNTER → 2024-05-29 09:58 | Outpatient (BNVA) | payer OTHER, SELFPAY | PROVIDERS: PCP Emergency Medicine Emergency Medical Services; Visit Provider Thoracic Surgery (Cardiothoracic Vascular Surgery) | DX: I96 Gangrene, not elsewhere classified (principal); T81.31XD Disruption of external operation (surgical) wound, not elsewhere classified, subsequent encounter; Y83.8 Other surgical procedures as the cause of abnormal reaction of the patient, or of later complication, without mention of misadventure at the time of the procedure | CPT/HCPCS: 97597 ==

== ENCOUNTER → 2024-06-12 10:06 | Outpatient (BNVA) | payer OTHER, SELFPAY | PROVIDERS: PCP Emergency Medicine Emergency Medical Services; Visit Provider Thoracic Surgery (Cardiothoracic Vascular Surgery) | DX: I96 Gangrene, not elsewhere classified (principal); T81.31XD Disruption of external operation (surgical) wound, not elsewhere classified, subsequent encounter; Y83.8 Other surgical procedures as the cause of abnormal reaction of the patient, or of later complication, without mention of misadventure at the time of the procedure | CPT/HCPCS: 97597 ==

== ENCOUNTER → 2024-06-26 10:06 | Outpatient (BNVA) | payer OTHER, SELFPAY | PROVIDERS: PCP Emergency Medicine Emergency Medical Services; Visit Provider Thoracic Surgery (Cardiothoracic Vascular Surgery) | DX: T81.31XD Disruption of external operation (surgical) wound, not elsewhere classified, subsequent encounter (principal); Y83.8 Other surgical procedures as the cause of abnormal reaction of the patient, or of later complication, without mention of misadventure at the time of the procedure | CPT/HCPCS: 97597 ==

== ENCOUNTER → 2024-07-03 10:15 | Outpatient (BNVA) | payer OTHER, SELFPAY | PROVIDERS: PCP Emergency Medicine Emergency Medical Services; Visit Provider Thoracic Surgery (Cardiothoracic Vascular Surgery) | DX: I96 Gangrene, not elsewhere classified (principal); T81.31XD Disruption of external operation (surgical) wound, not elsewhere classified, subsequent encounter; Y83.8 Other surgical procedures as the cause of abnormal reaction of the patient, or of later complication, without mention of misadventure at the time of the procedure | CPT/HCPCS: 97597 ==

== ENCOUNTER → 2024-07-17 10:00 | Outpatient (BNVA) | payer OTHER, SELFPAY | PROVIDERS: PCP Emergency Medicine Emergency Medical Services; Visit Provider Thoracic Surgery (Cardiothoracic Vascular Surgery) | DX: I96 Gangrene, not elsewhere classified (principal); T81.31XD Disruption of external operation (surgical) wound, not elsewhere classified, subsequent encounter; Y83.8 Other surgical procedures as the cause of abnormal reaction of the patient, or of later complication, without mention of misadventure at the time of the procedure | CPT/HCPCS: 97597 ==

== ENCOUNTER → 2024-07-31 10:08 | Outpatient (BNVA) | payer OTHER, SELFPAY | PROVIDERS: PCP Emergency Medicine Emergency Medical Services; Visit Provider Thoracic Surgery (Cardiothoracic Vascular Surgery) | DX: I96 Gangrene, not elsewhere classified (principal); T81.31XD Disruption of external operation (surgical) wound, not elsewhere classified, subsequent encounter; Y83.8 Other surgical procedures as the cause of abnormal reaction of the patient, or of later complication, without mention of misadventure at the time of the procedure | CPT/HCPCS: 97597 ==

== ENCOUNTER → 2024-08-21 10:08 | Outpatient (BNVA) | payer OTHER, SELFPAY | PROVIDERS: PCP Emergency Medicine Emergency Medical Services; Visit Provider Thoracic Surgery (Cardiothoracic Vascular Surgery) | DX: I96 Gangrene, not elsewhere classified (principal); T81.31XD Disruption of external operation (surgical) wound, not elsewhere classified, subsequent encounter; Y83.8 Other surgical procedures as the cause of abnormal reaction of the patient, or of later complication, without mention of misadventure at the time of the procedure | CPT/HCPCS: 97597 ==

== ENCOUNTER → 2024-09-04 09:59 | Outpatient (BNVA) | payer OTHER, SELFPAY | PROVIDERS: PCP Emergency Medicine Emergency Medical Services; Visit Provider Thoracic Surgery (Cardiothoracic Vascular Surgery) | DX: I96 Gangrene, not elsewhere classified (principal); T81.31XD Disruption of external operation (surgical) wound, not elsewhere classified, subsequent encounter; Y83.8 Other surgical procedures as the cause of abnormal reaction of the patient, or of later complication, without mention of misadventure at the time of the procedure | CPT/HCPCS: 97597 ==

== ENCOUNTER → 2024-09-18 09:57 | Outpatient (BNVA) | payer OTHER, SELFPAY | PROVIDERS: PCP Emergency Medicine Emergency Medical Services; Visit Provider Thoracic Surgery (Cardiothoracic Vascular Surgery) | DX: I96 Gangrene, not elsewhere classified (principal); T81.31XD Disruption of external operation (surgical) wound, not elsewhere classified, subsequent encounter; Y83.8 Other surgical procedures as the cause of abnormal reaction of the patient, or of later complication, without mention of misadventure at the time of the procedure | CPT/HCPCS: 97597 ==

== ENCOUNTER → 2024-09-25 12:56 | Outpatient (BNVA) | payer OTHER, SELFPAY | PROVIDERS: PCP Emergency Medicine Emergency Medical Services; Visit Provider Thoracic Surgery (Cardiothoracic Vascular Surgery) | DX: I96 Gangrene, not elsewhere classified (principal); T81.31XD Disruption of external operation (surgical) wound, not elsewhere classified, subsequent encounter; Y83.8 Other surgical procedures as the cause of abnormal reaction of the patient, or of later complication, without mention of misadventure at the time of the procedure | CPT/HCPCS: 97597 ==

== ENCOUNTER → 2024-10-09 13:00 | Outpatient (BNVA) | payer OTHER, SELFPAY | PROVIDERS: PCP Emergency Medicine Emergency Medical Services; Visit Provider Thoracic Surgery (Cardiothoracic Vascular Surgery) | DX: I96 Gangrene, not elsewhere classified (principal); T81.31XD Disruption of external operation (surgical) wound, not elsewhere classified, subsequent encounter; Y83.8 Other surgical procedures as the cause of abnormal reaction of the patient, or of later complication, without mention of misadventure at the time of the procedure | CPT/HCPCS: 97597 ==

== ENCOUNTER → 2024-10-23 10:14 | Outpatient (BNVA) | payer OTHER, SELFPAY | PROVIDERS: PCP Emergency Medicine Emergency Medical Services; Visit Provider Thoracic Surgery (Cardiothoracic Vascular Surgery) | DX: I96 Gangrene, not elsewhere classified (principal); T81.31XD Disruption of external operation (surgical) wound, not elsewhere classified, subsequent encounter; Y83.8 Other surgical procedures as the cause of abnormal reaction of the patient, or of later complication, without mention of misadventure at the time of the procedure | CPT/HCPCS: 97597 ==

== ENCOUNTER → 2024-11-06 10:12 | Outpatient (BNVA) | payer OTHER, SELFPAY | PROVIDERS: PCP Emergency Medicine Emergency Medical Services; Visit Provider Thoracic Surgery (Cardiothoracic Vascular Surgery) | DX: I96 Gangrene, not elsewhere classified (principal); T81.31XD Disruption of external operation (surgical) wound, not elsewhere classified, subsequent encounter; Y83.8 Other surgical procedures as the cause of abnormal reaction of the patient, or of later complication, without mention of misadventure at the time of the procedure | CPT/HCPCS: 97597 ==

== ENCOUNTER → 2024-11-20 10:03 | Outpatient (BNVA) | payer OTHER, SELFPAY | PROVIDERS: PCP Emergency Medicine Emergency Medical Services; Visit Provider Thoracic Surgery (Cardiothoracic Vascular Surgery) | DX: I96 Gangrene, not elsewhere classified (principal); T81.31XD Disruption of external operation (surgical) wound, not elsewhere classified, subsequent encounter; Y83.8 Other surgical procedures as the cause of abnormal reaction of the patient, or of later complication, without mention of misadventure at the time of the procedure | CPT/HCPCS: 97597 ==

== ENCOUNTER → 2024-12-04 10:15 | Outpatient (BNVA) | payer OTHER, SELFPAY | PROVIDERS: PCP Emergency Medicine Emergency Medical Services; Visit Provider Thoracic Surgery (Cardiothoracic Vascular Surgery) | DX: I96 Gangrene, not elsewhere classified (principal); T81.31XD Disruption of external operation (surgical) wound, not elsewhere classified, subsequent encounter; Y83.8 Other surgical procedures as the cause of abnormal reaction of the patient, or of later complication, without mention of misadventure at the time of the procedure | CPT/HCPCS: 97597 ==

== ENCOUNTER → 2024-12-18 10:03 | Outpatient (BNVA) | payer OTHER, SELFPAY | PROVIDERS: PCP Emergency Medicine Emergency Medical Services; Visit Provider Thoracic Surgery (Cardiothoracic Vascular Surgery) | DX: I96 Gangrene, not elsewhere classified (principal); T81.31XD Disruption of external operation (surgical) wound, not elsewhere classified, subsequent encounter; Y83.8 Other surgical procedures as the cause of abnormal reaction of the patient, or of later complication, without mention of misadventure at the time of the procedure | CPT/HCPCS: 97597 ==

== ENCOUNTER → 2025-01-01 10:06 | Outpatient (BNVA) | payer OTHER, SELFPAY | PROVIDERS: PCP Emergency Medicine Emergency Medical Services | DX: I96 Gangrene, not elsewhere classified (principal); T81.31XD Disruption of external operation (surgical) wound, not elsewhere classified, subsequent encounter; Y83.8 Other surgical procedures as the cause of abnormal reaction of the patient, or of later complication, without mention of misadventure at the time of the procedure | CPT/HCPCS: 97597 ==

== ENCOUNTER → 2025-01-15 10:19 | Outpatient (BNVA) | payer OTHER, SELFPAY | PROVIDERS: PCP Emergency Medicine Emergency Medical Services; Visit Provider Thoracic Surgery (Cardiothoracic Vascular Surgery) | DX: I96 Gangrene, not elsewhere classified (principal); T81.31XD Disruption of external operation (surgical) wound, not elsewhere classified, subsequent encounter; Y83.8 Other surgical procedures as the cause of abnormal reaction of the patient, or of later complication, without mention of misadventure at the time of the procedure | CPT/HCPCS: 15271; A6206; A6250 ==

== ENCOUNTER → 2025-01-22 13:07 | Outpatient (BNVA) | payer OTHER, SELFPAY | PROVIDERS: PCP Emergency Medicine Emergency Medical Services; Visit Provider Thoracic Surgery (Cardiothoracic Vascular Surgery) | DX: I96 Gangrene, not elsewhere classified (principal); T81.31XD Disruption of external operation (surgical) wound, not elsewhere classified, subsequent encounter; Y83.8 Other surgical procedures as the cause of abnormal reaction of the patient, or of later complication, without mention of misadventure at the time of the procedure | CPT/HCPCS: 97597; A6197 ==

== ENCOUNTER → 2025-02-05 10:01 | Outpatient (BNVA) | payer OTHER, SELFPAY | PROVIDERS: PCP Emergency Medicine Emergency Medical Services; Visit Provider Thoracic Surgery (Cardiothoracic Vascular Surgery) | DX: I96 Gangrene, not elsewhere classified (principal); T81.31XD Disruption of external operation (surgical) wound, not elsewhere classified, subsequent encounter; Y83.8 Other surgical procedures as the cause of abnormal reaction of the patient, or of later complication, without mention of misadventure at the time of the procedure | CPT/HCPCS: 15271; A6206; A6250 ==

== ENCOUNTER → 2025-02-12 10:07 | Outpatient (BNVA) | payer OTHER, SELFPAY | PROVIDERS: PCP Emergency Medicine Emergency Medical Services; Visit Provider Thoracic Surgery (Cardiothoracic Vascular Surgery) | DX: I96 Gangrene, not elsewhere classified (principal); T81.31XD Disruption of external operation (surgical) wound, not elsewhere classified, subsequent encounter; Y83.8 Other surgical procedures as the cause of abnormal reaction of the patient, or of later complication, without mention of misadventure at the time of the procedure | CPT/HCPCS: 15271; A6213; A6250 ==

== ENCOUNTER → 2025-02-20 10:22 | Outpatient (BNVA) | payer OTHER, SELFPAY | PROVIDERS: PCP Emergency Medicine Emergency Medical Services; Visit Provider Thoracic Surgery (Cardiothoracic Vascular Surgery) | DX: I96 Gangrene, not elsewhere classified (principal); T81.31XD Disruption of external operation (surgical) wound, not elsewhere classified, subsequent encounter; Y83.8 Other surgical procedures as the cause of abnormal reaction of the patient, or of later complication, without mention of misadventure at the time of the procedure | CPT/HCPCS: 15271 ==

== ENCOUNTER → 2025-02-26 14:20 | Outpatient (BNVA) | payer OTHER, SELFPAY | PROVIDERS: PCP Emergency Medicine Emergency Medical Services; Visit Provider Thoracic Surgery (Cardiothoracic Vascular Surgery) | DX: I96 Gangrene, not elsewhere classified (principal); T81.31XD Disruption of external operation (surgical) wound, not elsewhere classified, subsequent encounter; Y83.8 Other surgical procedures as the cause of abnormal reaction of the patient, or of later complication, without mention of misadventure at the time of the procedure | CPT/HCPCS: 97597 ==

== ENCOUNTER → 2025-03-05 14:15 | Outpatient (BNVA) | payer OTHER, SELFPAY | PROVIDERS: PCP Emergency Medicine Emergency Medical Services; Visit Provider Thoracic Surgery (Cardiothoracic Vascular Surgery) | DX: I96 Gangrene, not elsewhere classified (principal); T81.31XD Disruption of external operation (surgical) wound, not elsewhere classified, subsequent encounter; Y83.8 Other surgical procedures as the cause of abnormal reaction of the patient, or of later complication, without mention of misadventure at the time of the procedure | CPT/HCPCS: 15271; A6021; A6206; A6250 ==

== ENCOUNTER → 2025-03-12 13:44 | Outpatient (BNVA) | payer OTHER, SELFPAY | PROVIDERS: PCP Emergency Medicine Emergency Medical Services; Visit Provider Thoracic Surgery (Cardiothoracic Vascular Surgery) | DX: I96 Gangrene, not elsewhere classified (principal); T81.31XD Disruption of external operation (surgical) wound, not elsewhere classified, subsequent encounter; Y83.8 Other surgical procedures as the cause of abnormal reaction of the patient, or of later complication, without mention of misadventure at the time of the procedure | CPT/HCPCS: 15271; A6206 ==

== ENCOUNTER → 2025-03-19 08:52 | Outpatient (BNVA) | payer OTHER, SELFPAY | PROVIDERS: PCP Emergency Medicine Emergency Medical Services; Visit Provider Thoracic Surgery (Cardiothoracic Vascular Surgery) | DX: I96 Gangrene, not elsewhere classified (principal); T81.31XD Disruption of external operation (surgical) wound, not elsewhere classified, subsequent encounter; Y83.8 Other surgical procedures as the cause of abnormal reaction of the patient, or of later complication, without mention of misadventure at the time of the procedure | CPT/HCPCS: 15271 ==

== ENCOUNTER → 2025-03-26 10:24 | Outpatient (BNVA) | payer OTHER, SELFPAY | PROVIDERS: PCP Emergency Medicine Emergency Medical Services; Visit Provider Thoracic Surgery (Cardiothoracic Vascular Surgery) | DX: I96 Gangrene, not elsewhere classified (principal); T81.31XD Disruption of external operation (surgical) wound, not elsewhere classified, subsequent encounter; Y83.8 Other surgical procedures as the cause of abnormal reaction of the patient, or of later complication, without mention of misadventure at the time of the procedure | CPT/HCPCS: 15271; A6206; A6207; Q4187 ==

== ENCOUNTER → 2025-04-02 09:32 | Outpatient (BNVA) | payer OTHER, SELFPAY | PROVIDERS: PCP Emergency Medicine Emergency Medical Services; Visit Provider Thoracic Surgery (Cardiothoracic Vascular Surgery) | DX: I96 Gangrene, not elsewhere classified (principal); T81.31XD Disruption of external operation (surgical) wound, not elsewhere classified, subsequent encounter; Y83.8 Other surgical procedures as the cause of abnormal reaction of the patient, or of later complication, without mention of misadventure at the time of the procedure | CPT/HCPCS: 97597 ==

== ENCOUNTER → 2025-04-09 10:07 | Outpatient (BNVA) | payer OTHER, SELFPAY | PROVIDERS: PCP Emergency Medicine Emergency Medical Services; Visit Provider Thoracic Surgery (Cardiothoracic Vascular Surgery) | DX: I96 Gangrene, not elsewhere classified (principal); T81.31XD Disruption of external operation (surgical) wound, not elsewhere classified, subsequent encounter; Y83.8 Other surgical procedures as the cause of abnormal reaction of the patient, or of later complication, without mention of misadventure at the time of the procedure | CPT/HCPCS: 15271 ==

== ENCOUNTER → 2025-04-16 10:23 | Outpatient (BNVA) | payer OTHER, SELFPAY | PROVIDERS: PCP Emergency Medicine Emergency Medical Services; Visit Provider Thoracic Surgery (Cardiothoracic Vascular Surgery) | DX: I96 Gangrene, not elsewhere classified (principal); T81.31XD Disruption of external operation (surgical) wound, not elsewhere classified, subsequent encounter; Y83.8 Other surgical procedures as the cause of abnormal reaction of the patient, or of later complication, without mention of misadventure at the time of the procedure | CPT/HCPCS: 15271; A6206; A6250 ==

== ENCOUNTER → 2025-04-23 09:42 | Outpatient (BNVA) | payer OTHER, SELFPAY | PROVIDERS: PCP Emergency Medicine Emergency Medical Services; Visit Provider Thoracic Surgery (Cardiothoracic Vascular Surgery) | DX: I96 Gangrene, not elsewhere classified (principal); T81.31XD Disruption of external operation (surgical) wound, not elsewhere classified, subsequent encounter; Y83.8 Other surgical procedures as the cause of abnormal reaction of the patient, or of later complication, without mention of misadventure at the time of the procedure | CPT/HCPCS: 15271; A6206; A6250; Q4187 ==

== ENCOUNTER → 2025-04-30 09:39 | Outpatient (BNVA) | payer OTHER, SELFPAY | PROVIDERS: PCP Emergency Medicine Emergency Medical Services; Visit Provider Thoracic Surgery (Cardiothoracic Vascular Surgery) | DX: I96 Gangrene, not elsewhere classified (principal); T81.31XD Disruption of external operation (surgical) wound, not elsewhere classified, subsequent encounter; Y83.8 Other surgical procedures as the cause of abnormal reaction of the patient, or of later complication, without mention of misadventure at the time of the procedure | CPT/HCPCS: 97597 ==

== ENCOUNTER → 2025-05-14 09:35 | Outpatient (BNVA) | payer OTHER, SELFPAY | PROVIDERS: PCP Emergency Medicine Emergency Medical Services; Visit Provider Thoracic Surgery (Cardiothoracic Vascular Surgery) | DX: I96 Gangrene, not elsewhere classified (principal); T81.31XD Disruption of external operation (surgical) wound, not elsewhere classified, subsequent encounter; Y83.8 Other surgical procedures as the cause of abnormal reaction of the patient, or of later complication, without mention of misadventure at the time of the procedure | CPT/HCPCS: 97597 ==

== ENCOUNTER → 2025-05-28 09:32 | Outpatient (BNVA) | payer OTHER, SELFPAY | PROVIDERS: PCP Emergency Medicine Emergency Medical Services; Visit Provider Thoracic Surgery (Cardiothoracic Vascular Surgery) | DX: I96 Gangrene, not elsewhere classified (principal); T81.31XD Disruption of external operation (surgical) wound, not elsewhere classified, subsequent encounter; Y83.8 Other surgical procedures as the cause of abnormal reaction of the patient, or of later complication, without mention of misadventure at the time of the procedure | CPT/HCPCS: 97597 ==

== ENCOUNTER → 2025-06-11 10:06 | Outpatient (BNVA) | payer OTHER, SELFPAY | PROVIDERS: PCP Emergency Medicine Emergency Medical Services; Visit Provider Thoracic Surgery (Cardiothoracic Vascular Surgery) | DX: I96 Gangrene, not elsewhere classified (principal); T81.31XD Disruption of external operation (surgical) wound, not elsewhere classified, subsequent encounter; Y83.8 Other surgical procedures as the cause of abnormal reaction of the patient, or of later complication, without mention of misadventure at the time of the procedure | CPT/HCPCS: 15271; A6206 ==

== ENCOUNTER → 2025-06-18 09:51 | Outpatient (BNVA) | payer OTHER, SELFPAY | PROVIDERS: PCP Emergency Medicine Emergency Medical Services; Visit Provider Thoracic Surgery (Cardiothoracic Vascular Surgery) | DX: I96 Gangrene, not elsewhere classified (principal); T81.31XD Disruption of external operation (surgical) wound, not elsewhere classified, subsequent encounter; Y83.8 Other surgical procedures as the cause of abnormal reaction of the patient, or of later complication, without mention of misadventure at the time of the procedure | CPT/HCPCS: 15271; A6206; A6250 ==

== ENCOUNTER → 2025-06-25 09:40 | Outpatient (BNVA) | payer OTHER, SELFPAY | PROVIDERS: PCP Emergency Medicine Emergency Medical Services; Visit Provider Thoracic Surgery (Cardiothoracic Vascular Surgery) | DX: I96 Gangrene, not elsewhere classified (principal); T81.31XD Disruption of external operation (surgical) wound, not elsewhere classified, subsequent encounter; Y83.8 Other surgical procedures as the cause of abnormal reaction of the patient, or of later complication, without mention of misadventure at the time of the procedure | CPT/HCPCS: 15271; A6206; A6250 ==

== ENCOUNTER → 2025-07-02 10:57 | Outpatient (BNVA) | payer OTHER, SELFPAY | PROVIDERS: PCP Emergency Medicine Emergency Medical Services; Visit Provider Thoracic Surgery (Cardiothoracic Vascular Surgery) | DX: I96 Gangrene, not elsewhere classified (principal); T81.31XD Disruption of external operation (surgical) wound, not elsewhere classified, subsequent encounter; Y83.8 Other surgical procedures as the cause of abnormal reaction of the patient, or of later complication, without mention of misadventure at the time of the procedure | CPT/HCPCS: 15271; A6021; A6206; A6250 ==

== ENCOUNTER → 2025-07-09 08:48 | Outpatient (BNVA) | payer OTHER, SELFPAY | PROVIDERS: PCP Emergency Medicine Emergency Medical Services; Visit Provider Thoracic Surgery (Cardiothoracic Vascular Surgery) | DX: I96 Gangrene, not elsewhere classified (principal); T81.31XD Disruption of external operation (surgical) wound, not elsewhere classified, subsequent encounter; Y83.8 Other surgical procedures as the cause of abnormal reaction of the patient, or of later complication, without mention of misadventure at the time of the procedure | CPT/HCPCS: 15271; A6206 ==

== ENCOUNTER → 2025-07-16 10:05 | Outpatient (BNVA) | payer OTHER, SELFPAY | PROVIDERS: PCP Emergency Medicine Emergency Medical Services; Visit Provider Thoracic Surgery (Cardiothoracic Vascular Surgery) | DX: I96 Gangrene, not elsewhere classified (principal); T81.31XD Disruption of external operation (surgical) wound, not elsewhere classified, subsequent encounter; Y83.8 Other surgical procedures as the cause of abnormal reaction of the patient, or of later complication, without mention of misadventure at the time of the procedure | CPT/HCPCS: 15271; A6206; A6250 ==

== ENCOUNTER → 2025-07-23 09:43 | Outpatient (BNVA) | payer OTHER, SELFPAY | PROVIDERS: PCP Emergency Medicine Emergency Medical Services; Visit Provider Thoracic Surgery (Cardiothoracic Vascular Surgery) | DX: I96 Gangrene, not elsewhere classified (principal); T81.31XD Disruption of external operation (surgical) wound, not elsewhere classified, subsequent encounter; Y83.8 Other surgical procedures as the cause of abnormal reaction of the patient, or of later complication, without mention of misadventure at the time of the procedure | CPT/HCPCS: 97597 ==

== ENCOUNTER → 2025-08-06 10:26 | Outpatient (BNVA) | payer OTHER, SELFPAY | PROVIDERS: PCP Emergency Medicine Emergency Medical Services; Visit Provider Thoracic Surgery (Cardiothoracic Vascular Surgery) | DX: I96 Gangrene, not elsewhere classified (principal); T81.31XD Disruption of external operation (surgical) wound, not elsewhere classified, subsequent encounter; Y83.8 Other surgical procedures as the cause of abnormal reaction of the patient, or of later complication, without mention of misadventure at the time of the procedure | CPT/HCPCS: 97597 ==

== ENCOUNTER → 2025-08-20 10:19 | Outpatient (BNVA) | payer OTHER, SELFPAY | PROVIDERS: PCP Emergency Medicine Emergency Medical Services; Visit Provider Thoracic Surgery (Cardiothoracic Vascular Surgery) | DX: I96 Gangrene, not elsewhere classified (principal); T81.31XD Disruption of external operation (surgical) wound, not elsewhere classified, subsequent encounter; Y83.8 Other surgical procedures as the cause of abnormal reaction of the patient, or of later complication, without mention of misadventure at the time of the procedure | CPT/HCPCS: 97597 ==

== ENCOUNTER → 2025-09-03 09:43 | Outpatient (BNVA) | payer OTHER, SELFPAY | PROVIDERS: PCP Emergency Medicine Emergency Medical Services; Visit Provider Thoracic Surgery (Cardiothoracic Vascular Surgery) | DX: I96 Gangrene, not elsewhere classified (principal); T81.31XD Disruption of external operation (surgical) wound, not elsewhere classified, subsequent encounter; Y83.8 Other surgical procedures as the cause of abnormal reaction of the patient, or of later complication, without mention of misadventure at the time of the procedure | CPT/HCPCS: 97597; A6219 ==